=== PATIENT | male | born 1950 | race Caucasian/White ===

== ENCOUNTER 2024-10-06 17:24 | Inpatient (IN) ==
--- NOTE | 2024-10-06 17:46 | Emergency Department Note ---
Impression & Plan Stroke-like symptom, Acute alteration in mental status ED Provider Note NAME: FREDERICK BLAKE AGE: 74 SEX: M : 1950 ARRIVES VIA: Ambulance INFORMANT: Patient, EMS, the patient's family ED PROVIDER(S): Tobias Barrett DO CHIEF COMPLAINT: Strokelike symptoms HPI: The patient is a 74-year-old male who presented to the emergency department for an evaluation of strokelike symptoms. The patient was going to the bathroom. He was having episodes of loose stool. The patient went to come out of the bathroom and he was confused. Family members stated that he was asking repetitive questions. He was very confused. They did not notice any seizure- like activity. The patient did not fall or strike his head. The patient has no history of similar episodes in the past. The patient does take aspirin but no oral anticoagulants. 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 ROS: See above HPI for pertinent positives & negatives. A total of 10 systems reviewed and were otherwise negative. PAST MEDICAL HISTORY: See Below PAST SURGICAL HISTORY: See Below FAMILY HISTORY: See Below SOCIAL HISTORY: See Below HOME MEDICATIONS: See Below ALLERGIES: See Below VITALS: See Below PHYSICAL EXAMINATION: GENERAL: Patient is awake alert in no acute distress patient is resting comfortably and showing no signs of anxiety EYES: The conjunctivae are clear. The pupils are round and reactive. EARS, NOSE, MOUTH AND THROAT: The nose is without any evidence of any deformity. NECK: The neck is nontender and supple. RESPIRATORY: Normal respiratory effort is noted there is no evidence of wheezing rhonchi or rales CARDIOVASCULAR: Regular rate and rhythm noted there no murmurs rubs or gallops normal S1 normal S2. GASTROINTESTINAL: The abdomen is soft. Abdomen is nontender. MUSCULOSKELETAL/EXTREMITIES: There is no evidence of gross deformity full range of motion is noted in the hips and shoulders. SKIN: There is no obvious evidence of any rash. There are no petechiae, pallor or cyanosis noted. NEUROLOGIC: Patient is awake alert and oriented to person and place. He is not oriented to the year. He does recognize family members but has trouble with her names. Strength was symmetric. There is no drift in the upper extremities. There is no facial droop. Speech was pressured but clear. MEDICAL DECISION MAKING: The patient is a 74-year-old male who presented to the emergency department for an acute alteration of mental status. The patient was experiencing loose bowel movements. He was going to the bathroom. When he came out of the bathroom he was confused. 911 was called. The patient arrived at the emergency department and was made a stroke alert prior to arrival. The patient was evaluated in CAT scan. Plain CT showed no acute process. I discussed the case with the on-call telestroke neurologist at [facility]. After their evaluation they do feel the patient would be a candidate for TNK given the acute onset of symptoms. There were no obvious contraindications. There was no reported head trauma. The patient does not take oral anticoagulants. He does have a history of high cholesterol as well as hypertension and diabetes. His risk factors for stroke are present. Initial CAT scan showed no acute process as read by radiology. I discussed the risks and benefits of TNK with the daughter as well as the significant other. The telestroke neurologist also discussed the risks and benefits. Verbal consent was obtained. Triage Nursing notes reviewed. Prior medical records reviewed Vital Signs: reviewed and remarkable for elevated blood pressure. Differential diagnosis: Infection, dehydration, metabolic abnormality, hypo/hyperglycemia, electrolyte disturbance, anemia, hypoxia, cardiac sources, intracerebral event, toxicologic, neurologic, as well as other pathologies. ER treatment provided: See below Diagnostics interpreted by me: ECG: EKG was obtained in the emergency department. My interpretation is normal sinus rhythm at 78 bpm. There is no ectopy. There is no acute ST segment abnormalities noted. QTc was 412 ms. Cardiac Monitoring: An order was placed for continuous cardiac monitoring. The monitor shows a rate of 66 bpm with sinus rhythm. Laboratory studies: As stated above and show below. Imaging studies: See below. Radiographic imaging was reviewed by myself Consultation(s): I discussed this case with Dr. Chery who is on-call for telestroke services at [facility]. I discussed this case with Dr. Cronin who is on-call for the [facility]. ED COURSE: Procedures: none Critical Care: I have personally spent greater than 45 minutes of critical care time in the direct management of this patient. This includes bedside care, interpretation of diagnostic studies, and testing, discussion with consultants, patient, and family members, and other required patient management activities. This 45 minutes is in excess of all separately billable procedures. Thrombolytics MDM Did the patient receive IV thrombolytics?: Yes Was there any delay in administration?: Yes Reason(s) for Delay: The patient's daughter required multiple explanations for the indication for TNK however she ultimately did agree to TNK. The patient's presentation was not classic for ischemic stroke and there was much discussion about the patient's other differential diagnoses prior to deciding that TNK was ultimately indicated. Past Med/Surg History Problem List (Updated 10/06/24 @ 18:35 by Tobias Barrett DO) Acute alteration in mental status (Acute) Stroke-like symptom (Acute) Medical History (Updated 10/06/24 @ 18:35 by Tobias Barrett DO) Hypertension Diabetes Social History Smoking Status: Former smoker Preferred Language: Taj[place] Feels Safe at Home: Yes Home Meds Home Medications Medication Instructions Recorded Confirmed aspirin 1 tab PO DIRECTED 10/06/24 10/06/24 atorvastatin 40 mg tablet 40 mg PO DAILY 10/06/24 10/06/24 lisinopril 20 mg tablet 20 mg PO DAILY 10/06/24 10/06/24 metformin 500 mg tablet,extended 1,000 mg PO BID 10/06/24 10/06/24 release 24 hr Results & Data (ED) Vital Signs Vital Signs - 24 hr 10/06/24 17:36 10/06/24 17:36 10/06/24 17:36 Temperature 36.8 C Temperature Source Oral Pulse Rate 81 81 Pulse Rate [Finger] Pulse Rate from SpO2 Sensor 81 Pulse Rhythm Regular Pulse Rhythm [Finger] Pulse Strength Normal Pulse Strength [Finger] Respiratory Rate 18 19 Respiratory Effort / Characteristics Non-Labored Respiratory Depth Normal Respiratory Pattern Regular Blood Pressure 167/88 H 167/88 H Blood Pressure [Left Arm] Blood Pressure Mean 114 131 Blood Pressure Mean [Left Arm] Blood Pressure Position Lying Blood Pressure Position [Left Arm] Pulse Oximetry 96 97 Oxygen Delivery Method Room Air Sepsis Recent Fever Within 48 Hours No Sepsis New/Unexplained Change in Mental Status Yes Sepsis Action Taken by Nursing No Action Required 10/06/24 17:37 10/06/24 17:39 10/06/24 17:45 Temperature Temperature Source Pulse Rate 86 82 Pulse Rate [Finger] Pulse Rate from SpO2 Sensor 81 Pulse Rhythm Pulse Rhythm [Finger] Pulse Strength Pulse Strength [Finger] Respiratory Rate 17 Respiratory Effort / Characteristics Respiratory Depth Respiratory Pattern Blood Pressure Blood Pressure [Left Arm] Blood Pressure Mean Blood Pressure Mean [Left Arm] Blood Pressure Position Blood Pressure Position [Left Arm] Pulse Oximetry 95 100 Oxygen Delivery Method Room Air Sepsis Recent Fever Within 48 Hours Sepsis New/Unexplained Change in Mental Status Sepsis Action Taken by Nursing 10/06/24 17:48 10/06/24 18:00 10/06/24 18:10 Temperature Temperature Source Pulse Rate Pulse Rate [Finger] 70 Pulse Rate from SpO2 Sensor Pulse Rhythm Pulse Rhythm [Finger] Regular Pulse Strength Pulse Strength [Finger] Normal Respiratory Rate 18 Respiratory Effort / Characteristics Non-Labored Respiratory Depth Normal Respiratory Pattern Regular Blood Pressure 156/88 H 170/82 H Blood Pressure [Left Arm] 152/75 H Blood Pressure Mean 118 103 Blood Pressure Mean [Left Arm] 100 Blood Pressure Position Blood Pressure Position [Left Arm] Lying Pulse Oximetry 97 Oxygen Delivery Method Room Air Sepsis Recent Fever Within 48 Hours Sepsis New/Unexplained Change in Mental Status Sepsis Action Taken by Nursing 10/06/24 18:15 Temperature Temperature Source Pulse Rate Pulse Rate [Finger] Pulse Rate from SpO2 Sensor Pulse Rhythm Pulse Rhythm [Finger] Pulse Strength Pulse Strength [Finger] Respiratory Rate Respiratory Effort / Characteristics Respiratory Depth Respiratory Pattern Blood Pressure 156/81 H Blood Pressure [Left Arm] Blood Pressure Mean 111 Blood Pressure Mean [Left Arm] Blood Pressure Position Blood Pressure Position [Left Arm] Pulse Oximetry Oxygen Delivery Method Sepsis Recent Fever Within 48 Hours Sepsis New/Unexplained Change in Mental Status Sepsis Action Taken by Assisted Medications Current Medication List: was personally reviewed by me Laboratory Data Attestation: I reviewed the patient's lab results. 10/06/24 17:37 10/06/24 17:37 Lab Results 10/06/24 10/06/24 Range/Units 17:37 17:41 WBC 6.48 (4.8-10.8) K/ul RBC 4.27 L (4.70-6.10) M/uL Hgb 12.9 L (14.0-18.0) g/dl POC Hgb 12.6 L (14.0-18.0) g/dl Hct 38.4 L (42.0-52.0) % POC Hct 37 L (42-52) % MCV 89.9 (80.0-100.0) fL MCH 30.2 (25.0-34.0) pg MCHC 33.6 (32.0-36.0) g/dL RDW Std Deviation 41.3 (36.4-46.3) fL RDW Coeff of Gisela 12.5 (11.5-14.5) % Plt Count 171 (130-400) K/uL MPV 9.7 (9.4-12.4) fL Immature Gran % (Auto) 0.3 % Neut % (Auto) 49.8 % Lymph % (Auto) 37.7 % [place] % (Auto) 8.8 % Eos % (Auto) 2.6 % Baso % (Auto) 0.8 % Neut # (Auto) 3.23 (1.40-6.50) K/uL Lymph # (Auto) 2.44 (1.20-3.40) K/uL [place] # (Auto) 0.57 (0.11-0.59) K/uL Eos # (Auto) 0.17 (0.00-0.50) K/uL Baso # (Auto) 0.05 (0.00-0.20) K/uL Immature Gran # (Auto) 0.02 (0.01-0.20) K/uL PT 11.0 (9.0-12.0) Seconds INR 1.0 (0.9-1.1) APTT 26 (21-31) Seconds PTT Ratio 1.0 POC Sodium 139 (135-144) mmol/L Sodium 136 (136-145) mmol/L POC Potassium 4.1 (3.3-5.0) mmol/L Potassium 4.1 (3.5-5.1) mmol/L POC Chloride 102 (101-112) mmol/L Chloride 104 (98-107) mmol/L Carbon Dioxide 26 (21-32) mmol/L POC Total CO2 18 L (24-31) mmol/L Anion Gap 6 (3-11) POC Anion Gap 24.0 (16-25) mmol/L POC BUN 19 H (7-18) mg/dl BUN 19 (6-23) mg/dl Creatinine 0.82 (0.6-1.4) mg/dl POC Creatinine 0.9 (0.6-1.3) mg/dl Est Cr Clr Drug Dosing 102.6 ml/min eGFR 92.18 BUN/Creatinine Ratio 23.2 H (10-20) Glucose 163 H (70-99(Fasting)) mg/dl POC Glucose (other) 153 H (70-99) mg/dl Calcium 8.7 (8.6-10.3) mg/dl POC Ioniz Calcium Shawn 1.13 (1.12-1.32) mmol/l Magnesium 1.7 (1.7-2.4) mg/dl Total Bilirubin 0.4 (0.2-1.0) mg/dl AST 17 (13-39) U/L ALT 16 (7-52) U/L Alkaline Phosphatase 54 (34-104) U/L Troponin I High Sens 4.7 (0-20) pg/ml Total Protein 6.7 (6.0-8.3) gm/dl Albumin 3.7 (3.4-5.0) gm/dl Globulin 3.0 (2.5-4.0) gm/dl Albumin/Globulin Ratio 1.2 (0.9-2) Administered Medications Magnesium Sulfate/Dextrose (Magnesium Sulfate / D5w) 1 gm in 100 mls @ 100 mls/hr IV Q1H BARBARA Stop: 10/06/24 20:23 Last Admin: 10/06/24 18:30 Dose: 100 mls/hr Documented By: KIERSTEN Discontinued Medications Tenecteplase 25 mg/ Syringe 5 mls @ 60 mls/min IV NOW ONE; Protocol Stop: 10/06/24 18:24 Last Admin: 10/06/24 18:25 Dose: 60 mls/min Documented By: KIERSTEN Co-signed By: NEHA Ioversol (Optiray 320 125ml) 115 ml IV ONCE ONE Stop: 10/06/24 17:26 Last Admin: 10/06/24 17:25 Dose: 115 ml Documented By: KENDRICK Sodium Chloride (Sodium Chloride 0.9% 10ml Flush) 20 ml IV NOW STA Stop: 10/06/24 18:14 Last Admin: 10/06/24 18:26 Dose: 20 ml Documented By: KIERSTEN Imaging Data Attestation: I personally reviewed and interpreted this imaging study as follows: My Impression: CT of the brain was obtained in the emergency department. My interpretation is no intracranial hemorrhage or mass effect, final report below. 1 view chest x-ray was obtained in the emergency department. My interpretation is no free air or definite infiltrate, final report pending. Radiologist's Impression: Head CT 10/06/24 17:22 EXAM: CT Head Without Intravenous Contrast INDICATION: Evaluate for stroke. Repetitive speech. TECHNIQUE: Axial computed tomography images of the head/brain without intravenous contrast. Sagittal and/or coronal reformats are provided. Sagittal and coronal reformatted images were created and reviewed. This CT exam was performed using one or more of the following dose reduction techniques: automated exposure control, adjustment of the mA and/or kV according to patient size, and/or use of iterative reconstruction technique. COMPARISON: No relevant prior studies available. FINDINGS: Limitations: None. Brain and extra-axial spaces: There is age appropriate cortical atrophy and chronic ischemic periventricular white matter hypodensity. No acute infarct, hemorrhage or mass noted. Bones/joints: No acute changes. Soft tissues: No significant abnormality noted. Vasculature: No acute abnormality noted. Sinuses: No layering fluid in the visualized portions of the paranasal sinuses. Mastoid air cells: No mastoid effusion. Orbits: No significant abnormality noted. IMPRESSION: Cerebral atrophy. No acute changes. ACT 112: N/A Electronically signed by Lizeth Franz 10-06-2024 5:44 PM Head CTA 10/06/24 17:22 EXAM: CT Angiography Head and Neck With Intravenous Contrast INDICATION: Evaluate for stroke. Repetitive speech. TECHNIQUE: [place] [facility] [place]/head and neck CT angiography protocol performed with intravenous contrast. Sagittal and coronal reformatted images were created and reviewed. This CT exam was performed using one or more of the following dose reduction techniques: automated exposure control, adjustment of the mA and/or kV according to patient size, and/or use of iterative reconstruction technique. MIP reconstructed images were created and reviewed. CONTRAST: 115ml of Optiray 320 was administered intravenously. COMPARISON: None. FINDINGS: HEAD: Right anterior cerebral artery: No abnormality noted. No occlusion or significant stenosis. Anterior communicating artery is present. No aneurysm. Right middle cerebral artery: No abnormality noted. No occlusion or significant stenosis. No aneurysm. Right posterior cerebral artery: No abnormality noted. No occlusion or significant stenosis. No aneurysm. Right intracranial internal carotid artery: Mild calcific plaque noted. No significant stenosis. No dissection or occlusion. Right intracranial vertebral artery: No abnormality noted. No significant stenosis. No dissection or occlusion. Left anterior cerebral artery: No abnormality noted. No occlusion or significant stenosis. No aneurysm. Left middle cerebral artery: No abnormality noted. No occlusion or significant stenosis. No aneurysm. Left posterior cerebral artery: No abnormality noted. No occlusion or significant stenosis. No aneurysm. Left intracranial internal carotid artery: Mild calcific plaque noted. No significant stenosis. No dissection or occlusion. Left intracranial vertebral artery: No abnormality noted. No significant stenosis. No dissection or occlusion. Basilar artery: No abnormality noted. No occlusion or significant stenosis. No aneurysm. Other vasculature: Patent dural venous sinuses. No vascular malformation. NECK: Right common carotid artery: No abnormality noted. No significant stenosis. No dissection or occlusion. Right extracranial internal carotid artery: Minimal calcific plaque at the bulb. No significant stenosis. No dissection or occlusion. Right external carotid artery: No abnormality noted. No occlusion. Right extracranial vertebral artery: No abnormality noted. No significant stenosis. No dissection or occlusion. Left common carotid artery: No abnormality noted. No significant stenosis. No dissection or occlusion. Left extracranial internal carotid artery: Normal calcific plaque at the bulb. No significant stenosis. No dissection or occlusion. Left external carotid artery: No abnormality noted. No occlusion. Left extracranial vertebral artery: No abnormality noted. No significant stenosis. No dissection or occlusion. Brachiocephalic and subclavian arteries: There is mild calcific plaque at the origins of both subclavian arteries. No occlusion, dissection or aneurysm. Lung apices: No significant abnormality noted. HEAD and NECK: Bones/joints: No significant abnormality. Moderate degenerative changes at all levels. There is prominent midline osteophyte disc complex with canal stenosis at C5-C6 and C6-C7. Soft tissues: No abnormality noted. CAROTID STENOSIS REFERENCE USING NASCET CRITERIA: % ICA stenosis = (1 - narrowest ICA diameter/diameter of distal cervical ICA) x 100. Mild - <50% stenosis. Moderate - 50-69% stenosis. Severe - 70-94% stenosis. Near occlusion - 95-99% stenosis. Occluded - 100% stenosis. IMPRESSION: No significant angiographic abnormality in the head or neck. ACT 112: N/A Electronically signed by Lizeth Franz 10-06-2024 5:48 PM Neck CTA 10/06/24 17:22 EXAM: CT Angiography Head and Neck With Intravenous Contrast INDICATION: Evaluate for stroke. Repetitive speech. TECHNIQUE: [place] [facility] [place]/head and neck CT angiography protocol performed with intravenous contrast. Sagittal and coronal reformatted images were created and reviewed. This CT exam was performed using one or more of the following dose reduction techniques: automated exposure control, adjustment of the mA and/or kV according to patient size, and/or use of iterative reconstruction technique. MIP reconstructed images were created and reviewed. CONTRAST: 115ml of Optiray 320 was administered intravenously. COMPARISON: None. FINDINGS: HEAD: Right anterior cerebral artery: No abnormality noted. No occlusion or significant stenosis. Anterior communicating artery is present. No aneurysm. Right middle cerebral artery: No abnormality noted. No occlusion or significant stenosis. No aneurysm. Right posterior cerebral artery: No abnormality noted. No occlusion or significant stenosis. No aneurysm. Right intracranial internal carotid artery: Mild calcific plaque noted. No significant stenosis. No dissection or occlusion. Right intracranial vertebral artery: No abnormality noted. No significant stenosis. No dissection or occlusion. Left anterior cerebral artery: No abnormality noted. No occlusion or significant stenosis. No aneurysm. Left middle cerebral artery: No abnormality noted. No occlusion or significant stenosis. No aneurysm. Left posterior cerebral artery: No abnormality noted. No occlusion or significant stenosis. No aneurysm. Left intracranial internal carotid artery: Mild calcific plaque noted. No significant stenosis. No dissection or occlusion. Left intracranial vertebral artery: No abnormality noted. No significant stenosis. No dissection or occlusion. Basilar artery: No abnormality noted. No occlusion or significant stenosis. No aneurysm. Other vasculature: Patent dural venous sinuses. No vascular malformation. NECK: Right common carotid artery: No abnormality noted. No significant stenosis. No dissection or occlusion. Right extracranial internal carotid artery: Minimal calcific plaque at the bulb. No significant stenosis. No dissection or occlusion. Right external carotid artery: No abnormality noted. No occlusion. Right extracranial vertebral artery: No abnormality noted. No significant stenosis. No dissection or occlusion. Left common carotid artery: No abnormality noted. No significant stenosis. No dissection or occlusion. Left extracranial internal carotid artery: Normal calcific plaque at the bulb. No significant stenosis. No dissection or occlusion. Left external carotid artery: No abnormality noted. No occlusion. Left extracranial vertebral artery: No abnormality noted. No significant stenosis. No dissection or occlusion. Brachiocephalic and subclavian arteries: There is mild calcific plaque at the origins of both subclavian arteries. No occlusion, dissection or aneurysm. Lung apices: No significant abnormality noted. HEAD and NECK: Bones/joints: No significant abnormality. Moderate degenerative changes at all levels. There is prominent midline osteophyte disc complex with canal stenosis at C5-C6 and C6-C7. Soft tissues: No abnormality noted. CAROTID STENOSIS REFERENCE USING NASCET CRITERIA: % ICA stenosis = (1 - narrowest ICA diameter/diameter of distal cervical ICA) x 100. Mild - <50% stenosis. Moderate - 50-69% stenosis. Severe - 70-94% stenosis. Near occlusion - 95-99% stenosis. Occluded - 100% stenosis. IMPRESSION: No significant angiographic abnormality in the head or neck. ACT 112: N/A Electronically signed by Lizeth Franz 10-06-2024 5:48 PM Discharge Plan Visit Data Chief Complaint: Stroke Alert Stated Complaint: STROKE ALERT ED Provider: Tobias Barrett Discharge Problem: Stroke-like symptom, Acute alteration in mental status Patient Disposition: Being Evaluated by Hospitalist Condition: Fair Forms Stand Alone Forms: [employer] Prescriptions Prescriptions: No Action atorvastatin 40 mg tablet 40 mg PO DAILY lisinopril 20 mg tablet 20 mg PO DAILY metformin 500 mg tablet extended release 24 hr 1,000 mg PO BID aspirin 1 tab PO DIRECTED Rx Instructions: otc unable to verify Referrals Referrals: PCP,NO [Physician] -
--- NOTE | 2024-10-06 17:49 | CT Scan Report ---
EXAM: CT Angiography Head and Neck With Intravenous Contrast INDICATION: Evaluate for stroke. Repetitive speech. TECHNIQUE: [place] [facility]/head and neck CT angiography protocol performed with intravenous contrast. Sagittal and coronal reformatted images were created and reviewed. This CT exam was performed using one or more of the following dose reduction techniques: automated exposure control, adjustment of the mA and/or kV according to patient size, and/or use of iterative reconstruction technique. MIP reconstructed images were created and reviewed. CONTRAST: 115ml of Optiray 320 was administered intravenously. COMPARISON: None. FINDINGS: HEAD: Right anterior cerebral artery: No abnormality noted. No occlusion or significant stenosis. Anterior communicating artery is present. No aneurysm. Right middle cerebral artery: No abnormality noted. No occlusion or significant stenosis. No aneurysm. Right posterior cerebral artery: No abnormality noted. No occlusion or significant stenosis. No aneurysm. Right intracranial internal carotid artery: Mild calcific plaque noted. No significant stenosis. No dissection or occlusion. Right intracranial vertebral artery: No abnormality noted. No significant stenosis. No dissection or occlusion. Left anterior cerebral artery: No abnormality noted. No occlusion or significant stenosis. No aneurysm. Left middle cerebral artery: No abnormality noted. No occlusion or significant stenosis. No aneurysm. Left posterior cerebral artery: No abnormality noted. No occlusion or significant stenosis. No aneurysm. Left intracranial internal carotid artery: Mild calcific plaque noted. No significant stenosis. No dissection or occlusion. Left intracranial vertebral artery: No abnormality noted. No significant stenosis. No dissection or occlusion. Basilar artery: No abnormality noted. No occlusion or significant stenosis. No aneurysm. Other vasculature: Patent dural venous sinuses. No vascular malformation. NECK: Right common carotid artery: No abnormality noted. No significant stenosis. No dissection or occlusion. Right extracranial internal carotid artery: Minimal calcific plaque at the bulb. No significant stenosis. No dissection or occlusion. Right external carotid artery: No abnormality noted. No occlusion. Right extracranial vertebral artery: No abnormality noted. No significant stenosis. No dissection or occlusion. Left common carotid artery: No abnormality noted. No significant stenosis. No dissection or occlusion. Left extracranial internal carotid artery: Normal calcific plaque at the bulb. No significant stenosis. No dissection or occlusion. Left external carotid artery: No abnormality noted. No occlusion. Left extracranial vertebral artery: No abnormality noted. No significant stenosis. No dissection or occlusion. Brachiocephalic and subclavian arteries: There is mild calcific plaque at the origins of both subclavian arteries. No occlusion, dissection or aneurysm. Lung apices: No significant abnormality noted. HEAD and NECK: Bones/joints: No significant abnormality. Moderate degenerative changes at all levels. There is prominent midline osteophyte disc complex with canal stenosis at C5-C6 and C6-C7. Soft tissues: No abnormality noted. CAROTID STENOSIS REFERENCE USING NASCET CRITERIA: % ICA stenosis = (1 - narrowest ICA diameter/diameter of distal cervical ICA) x 100. Mild - <50% stenosis. Moderate - 50-69% stenosis. Severe - 70-94% stenosis. Near occlusion - 95-99% stenosis. Occluded - 100% stenosis. IMPRESSION: No significant angiographic abnormality in the head or neck. ACT 112: N/A Electronically signed by Lizeth Franz 10-06-2024 5:48 PM
[2024-10-06 17:54] LABS: Basophils # (auto) 0.05 K/uL (0.00-0.20); Basophils % (auto) 0.8 %; Eosinophils # (auto) 0.17 K/uL (0.00-0.50); Eosinophils % (auto) 2.6 %; Hematocrit (blood only) 38.4 % (42.0-52.0); Hemoglobin 12.9 g/dl (14.0-18.0); Immature Granulocytes # (auto) 0.02 K/uL (0.01-0.20); Immature Granulocytes % (auto) 0.3 %; Lymphocytes # (auto) 2.44 K/uL (1.20-3.40); Lymphocytes % (auto) 37.7 %; Mean Corpuscular Hemoglobin 30.2 pg (25.0-34.0); Mean Corpuscular Hgb Conc 33.6 g/dL (32.0-36.0); Mean Corpuscular Volume 89.9 fL (80.0-100.0); Mean Platelet Volume 9.7 fL (9.4-12.4); Monocytes # (auto) 0.57 K/uL (0.11-0.59); Monocytes % (auto) 8.8 %; Neutrophils # (auto) 3.23 K/uL (1.40-6.50); Neutrophils % (auto) 49.8 %; Platelet Count 171 K/uL (130-400); RDW Coefficient of Variation 12.5 % (11.5-14.5); RDW Standard Deviation 41.3 fL (36.4-46.3); Red Blood Count 4.27 M/uL (4.70-6.10); White Blood Count 6.48 K/ul (4.8-10.8)
[2024-10-06 18:01] LABS: iSTAT Creatinine 0.9 mg/dl (0.6-1.3); iSTAT Hemoglobin 12.6 g/dl (14.0-18.0); iSTAT Ionized Calcium 1.13 mmol/l (1.12-1.32); iSTAT Potassium 4.1 mmol/L (3.3-5.0)
[2024-10-06 18:14] LABS: Albumin Globulin Ratio 1.2 (0.9-2); Albumin Level 3.7 gm/dl (3.4-5.0); BUN Creatinine Ratio 23.2 (10-20); Bilirubin,Total 0.4 mg/dl (0.2-1.0); Calcium 8.7 mg/dl (8.6-10.3); Creatinine Clr Calc Pharmacy 102.6 ml/min; Magnesium 1.7 mg/dl (1.7-2.4); Potassium 4.1 mmol/L (3.5-5.1); Total Protein 6.7 gm/dl (6.0-8.3)
[2024-10-06 18:20] LABS: Troponin I High Sensitivity 4.7 pg/ml (0-20)
[2024-10-06 18:30] LABS: Partial Thromboplastin Time 26 Seconds (21-31)
--- NOTE | 2024-10-06 18:34 | History & Physical Report ---
Date of Service October 06, 2024 Assessment & Plan (1) Stroke-like symptom: (2) Anterograde amnesia: (3) Hypertension: (4) Diabetes: Plan Mr. Francis is a 74 year old gentleman with past medical history remarkable for HTN, DMTII, HLD admitted for stroke r/o, s/p TNK at 1825 on 10/06/2024. Patient to be admitted to ICU for post TNK monitoring. Patient's neurologic deficit marked by prominent anterograde amnesia. Labs noncontributory thus far, no reported etoh history. TSH, folate, b12 pending. #Anterograde amnesia, stroke v TGA? #Stroke like symptoms CT head, CTA without acute stroke, dissection, vascular stenosis labs without acute abnormality Ordered TSH, B12, Folate Starting high dose thiamine UA ordered MRI ordered ECHO ordered CT in 24 hours s/p tnk ICU on consult PT/OT as able SCDS for now iso tnk dysphagia screen pending, advance diet as tolerated Neurology consult for am lipid panel and A1C in am continue home statin, hold asa iso tnk #HTN on lisinopril continue #HLD continue statin #DMII on metformin at home A1C in am hyperglycemic protocol per ICU Unassigned patient DVT SCDs Full code Admit ICU Admission and Anticipated Discharge Date Admission Date: Time spent evaluating patient, direct bedside care, chart review, placing orders, interpretation of diagnostic studies, discussion with consultants, patient, and family members, as well as other required patient management activities is 75 minutes. History of Present Illness Chief Complaint: Amnesia Primary Care Provider: Taye Alexander DO Mr. Francis is a 74 year old gentleman with past medical history remarkable for HTN, DMTII, HLD presented to [facility] ED due to amnesia. Patient was a code stroke prior to arrival. History mostly provided by and daughter at bedside. Patient was last well known around 1600 today. He eating dinner with family when he left to go to the bathroom. Upon returning, the states the patient exclaimed "whose plate is this?" The states from there on out he kept repeating the same things and was unable to recall any of the events of the day or the day prior. There was no presyncopal episode, no chest pain, no clear acute concern preceeding this event. It is reported perhaps an episode of diarrhea, however, there were no ongoing concerns of this previously. Patient continues to demonstrate continue anterograde amnesia--unable to remember why he is in the hospital, recall physicians who have examined him multiple times may be. He denies any headache, weakness, localizing symptoms. He is speaking clearly and moving all limbs normal. states patient does not drink alcohol, smoke tobacco, nor any other illicit substances. Patient is an avid bia, no ambulatory dysfunction at baseline. No reported seizure like activity, flaccid movements, weakness of extremities noted. Decision was made to administer TNK at 1825 on 10/06/2024 In the ED, vitals were notable for BP of 140s-170s HR of 60s and O2 sat of mid- high 90s on room air Imaging revealed CTA without any significant stenosis or dissection, CT head revealed cerebral atrophy but no infarct ED interventions: TNK, magnesium, thiamine Consultants: Telestroke Patient to be admitted to ICU for further evaluation and management of post TNK administration, stroke r/o, prominent anterograde amnesia Allergies Allergy/AdvReac Type Severity Reaction Status Date / Time No Known Allergies Allergy Unverified 10/06/24 19:22 Home Medications Medication Instructions Recorded Confirmed Type aspirin 1 tab PO DIRECTED 10/06/24 10/06/24 History atorvastatin 40 mg tablet 40 mg PO DAILY 10/06/24 10/06/24 History lisinopril 20 mg tablet 20 mg PO DAILY 10/06/24 10/06/24 History metformin 500 mg tablet,extended 1,000 mg PO BID 10/06/24 10/06/24 History release 24 hr Past Med/Surg History Problem List (Updated 10/06/24 @ 19:31 by Kindra Cronin MD) Anterograde amnesia Acute alteration in mental status (Acute) Stroke-like symptom (Acute) Medical History (Updated 10/06/24 @ 19:31 by Kindra Cronin MD) Hypertension Diabetes Social History Smoking Status: Former smoker Preferred Language: Thai Feels Safe at Home: Yes Review of Systems Review of Systems: Constitutional: (-) fever/chills, (-) recent loss of weight, (-) appetite changes, (-) night sweats. Head: (-) headache, (-) dizziness. Eye: (-) blurring of vision, (-) double vision, (-) redness. Ear: (-) hearing loss, (-) discharge, (-) vertigo Nose: (-) discharge, (-) bleeding, (-) congestion, (-) post nasal drip. Throat: (-) sore throat, (-) hoarseness of voice, (-) odynophagia. Cardiovascular: (-) chest pain, (-) palpitations, (-) syncope, (-) orthopnea, (- ) PND, (-) leg swelling. Respiratory: (-) shortness of breath, (-) cough, (-) wheezing, (-) hemoptysis. Neuro: (-) weakness in extremities, (-) numbness, (-) tingling, (-) tremor. Gastrointestinal: (-) belly pain, (-) belly distension, (-) nausea, (-) vomiting, (-) diarrhea (?, does not recall), (-) constipation Genitourinary: (-) hematuria, (-) dysuria, (-) polyuria, (-) hesitancy, (-) frequency, (-) urinary incontinence. Musculoskeletal: (-) myalgia, (-) arthralgia. Skin: (-) rashes. Endocrine: (-) heat/cold intolerance. Psychiatry: (-) depression, (-) hallucination. Physical Exam Physical Exam: GENERAL APPEARANCE: AxOx1, generally well-appearing, but recollection lasting approximately 1-2 minutes HEENT: NC, AT. MMM. EOMI, clear conjunctiva, oropharynx clear. NECK: Supple without lymphadenopathy. No stiffness or restricted ROM. HEART: Normal rate and regular rhythm, normal S1/S1, no m/r/g LUNGS: CTAB, moving air well. No crackles or wheezes are heard. ABDOMEN: Soft, nontender, nondistended with good bowel sounds heard. BACK: No CVAT, no obvious deformity. EXTREMITIES: Without cyanosis, clubbing or edema. NEUROLOGICAL: Grossly nonfocal. Alert and oriented, moving all 4 extremities. CNII-XII intact, strength 5/5 in all extremities Skin: Warm and dry without any rash. Results & Data Results & Data Vital Signs (Past 12 Hours) Vital Signs Temp Pulse Pulse Resp BP BP Pulse Ox 10/06/24 18:15 156/81 H 10/06/24 18:10 170/82 H 10/06/24 18:00 156/88 H 10/06/24 17:48 70 18 152/75 H 97 10/06/24 17:45 100 10/06/24 17:39 82 17 95 10/06/24 17:37 86 10/06/24 17:36 81 19 97 10/06/24 17:36 167/88 H 10/06/24 17:36 36.8 C 81 18 167/88 H 96 O2 Del Method 10/06/24 18:15 10/06/24 18:10 10/06/24 18:00 10/06/24 17:48 Room Air 10/06/24 17:45 Room Air 10/06/24 17:39 10/06/24 17:37 10/06/24 17:36 10/06/24 17:36 10/06/24 17:36 Room Air Laboratory Results Short CBC 10/06/24 Range/Units 17:37 WBC 6.48 (4.8-10.8) K/ul Hgb 12.9 L (14.0-18.0) g/dl Hct 38.4 L (42.0-52.0) % Plt Count 171 (130-400) K/uL BMP 10/06/24 17:37 Sodium 136 Potassium 4.1 Chloride 104 Carbon Dioxide 26 BUN 19 Creatinine 0.82 Glucose 163 H Calcium 8.7 Liver Function 10/06/24 Range/Units 17:37 Total Bilirubin 0.4 (0.2-1.0) mg/dl AST 17 (13-39) U/L ALT 16 (7-52) U/L Alkaline Phosphatase 54 (34-104) U/L Albumin 3.7 (3.4-5.0) gm/dl Diagnostic Findings Chest X-Ray 10/06/24 17:22 EXAM: Radiograph of the Chest 1 View INDICATION: Stroke TECHNIQUE: Frontal view of the chest. COMPARISON: No relevant prior studies available. FINDINGS: Lungs and pleural spaces: No consolidation or pulmonary edema. No pleural effusion or pneumothorax. Heart: Shape and configuration within normal limits allowing for technique. Mediastinum: Normal contour. Bones/joints: No fracture, erosion or dislocation. Soft tissues: No abnormality noted. No radiopaque foreign body noted. Vasculature: Mild ectatic aorta. Upper abdomen: No abnormality noted. IMPRESSION: No acute cardiopulmonary disease. ACT 112: N/A Electronically signed by Lizeth Franz 10-06-2024 6:[address] 10/06/24 17:22 EXAM: CT Head Without Intravenous Contrast INDICATION: Evaluate for stroke. Repetitive speech. TECHNIQUE: Axial computed tomography images of the head/brain without intravenous contrast. Sagittal and/or coronal reformats are provided. Sagittal and coronal reformatted images were created and reviewed. This CT exam was performed using one or more of the following dose reduction techniques: automated exposure control, adjustment of the mA and/or kV according to patient size, and/or use of iterative reconstruction technique. COMPARISON: No relevant prior studies available. FINDINGS: Limitations: None. Brain and extra-axial spaces: There is age appropriate cortical atrophy and chronic ischemic periventricular white matter hypodensity. No acute infarct, hemorrhage or mass noted. Bones/joints: No acute changes. Soft tissues: No significant abnormality noted. Vasculature: No acute abnormality noted. Sinuses: No layering fluid in the visualized portions of the paranasal sinuses. Mastoid air cells: No mastoid effusion. Orbits: No significant abnormality noted. IMPRESSION: Cerebral atrophy. No acute changes. ACT 112: N/A Electronically signed by Lizeth Franz 10-06-2024 5:44 PM Head CTA 10/06/24 17:22 EXAM: CT Angiography Head and Neck With Intravenous Contrast INDICATION: Evaluate for stroke. Repetitive speech. TECHNIQUE: [place] [facility]/head and neck CT angiography protocol performed with intravenous contrast. Sagittal and coronal reformatted images were created and reviewed. This CT exam was performed using one or more of the following dose reduction techniques: automated exposure control, adjustment of the mA and/or kV according to patient size, and/or use of iterative reconstruction technique. MIP reconstructed images were created and reviewed. CONTRAST: 115ml of Optiray 320 was administered intravenously. COMPARISON: None. FINDINGS: HEAD: Right anterior cerebral artery: No abnormality noted. No occlusion or significant stenosis. Anterior communicating artery is present. No aneurysm. Right middle cerebral artery: No abnormality noted. No occlusion or significant stenosis. No aneurysm. Right posterior cerebral artery: No abnormality noted. No occlusion or significant stenosis. No aneurysm. Right intracranial internal carotid artery: Mild calcific plaque noted. No significant stenosis. No dissection or occlusion. Right intracranial vertebral artery: No abnormality noted. No significant stenosis. No dissection or occlusion. Left anterior cerebral artery: No abnormality noted. No occlusion or significant stenosis. No aneurysm. Left middle cerebral artery: No abnormality noted. No occlusion or significant stenosis. No aneurysm. Left posterior cerebral artery: No abnormality noted. No occlusion or significant stenosis. No aneurysm. Left intracranial internal carotid artery: Mild calcific plaque noted. No significant stenosis. No dissection or occlusion. Left intracranial vertebral artery: No abnormality noted. No significant stenosis. No dissection or occlusion. Basilar artery: No abnormality noted. No occlusion or significant stenosis. No aneurysm. Other vasculature: Patent dural venous sinuses. No vascular malformation. NECK: Right common carotid artery: No abnormality noted. No significant stenosis. No dissection or occlusion. Right extracranial internal carotid artery: Minimal calcific plaque at the bulb. No significant stenosis. No dissection or occlusion. Right external carotid artery: No abnormality noted. No occlusion. Right extracranial vertebral artery: No abnormality noted. No significant stenosis. No dissection or occlusion. Left common carotid artery: No abnormality noted. No significant stenosis. No dissection or occlusion. Left extracranial internal carotid artery: Normal calcific plaque at the bulb. No significant stenosis. No dissection or occlusion. Left external carotid artery: No abnormality noted. No occlusion. Left extracranial vertebral artery: No abnormality noted. No significant stenosis. No dissection or occlusion. Brachiocephalic and subclavian arteries: There is mild calcific plaque at the origins of both subclavian arteries. No occlusion, dissection or aneurysm. Lung apices: No significant abnormality noted. HEAD and NECK: Bones/joints: No significant abnormality. Moderate degenerative changes at all levels. There is prominent midline osteophyte disc complex with canal stenosis at C5-C6 and C6-C7. Soft tissues: No abnormality noted. CAROTID STENOSIS REFERENCE USING NASCET CRITERIA: % ICA stenosis = (1 - narrowest ICA diameter/diameter of distal cervical ICA) x 100. Mild - <50% stenosis. Moderate - 50-69% stenosis. Severe - 70-94% stenosis. Near occlusion - 95-99% stenosis. Occluded - 100% stenosis. IMPRESSION: No significant angiographic abnormality in the head or neck. ACT 112: N/A Electronically signed by Lizeth Franz 10-06-2024 5:48 PM Neck CTA 10/06/24 17:22 EXAM: CT Angiography Head and Neck With Intravenous Contrast INDICATION: Evaluate for stroke. Repetitive speech. TECHNIQUE: [place] [facility]/head and neck CT angiography protocol performed with intravenous contrast. Sagittal and coronal reformatted images were created and reviewed. This CT exam was performed using one or more of the following dose reduction techniques: automated exposure control, adjustment of the mA and/or kV according to patient size, and/or use of iterative reconstruction technique. MIP reconstructed images were created and reviewed. CONTRAST: 115ml of Optiray 320 was administered intravenously. COMPARISON: None. FINDINGS: HEAD: Right anterior cerebral artery: No abnormality noted. No occlusion or significant stenosis. Anterior communicating artery is present. No aneurysm. Right middle cerebral artery: No abnormality noted. No occlusion or significant stenosis. No aneurysm. Right posterior cerebral artery: No abnormality noted. No occlusion or significant stenosis. No aneurysm. Right intracranial internal carotid artery: Mild calcific plaque noted. No significant stenosis. No dissection or occlusion. Right intracranial vertebral artery: No abnormality noted. No significant stenosis. No dissection or occlusion. Left anterior cerebral artery: No abnormality noted. No occlusion or significant stenosis. No aneurysm. Left middle cerebral artery: No abnormality noted. No occlusion or significant stenosis. No aneurysm. Left posterior cerebral artery: No abnormality noted. No occlusion or significant stenosis. No aneurysm. Left intracranial internal carotid artery: Mild calcific plaque noted. No significant stenosis. No dissection or occlusion. Left intracranial vertebral artery: No abnormality noted. No significant stenosis. No dissection or occlusion. Basilar artery: No abnormality noted. No occlusion or significant stenosis. No aneurysm. Other vasculature: Patent dural venous sinuses. No vascular malformation. NECK: Right common carotid artery: No abnormality noted. No significant stenosis. No dissection or occlusion. Right extracranial internal carotid artery: Minimal calcific plaque at the bulb. No significant stenosis. No dissection or occlusion. Right external carotid artery: No abnormality noted. No occlusion. Right extracranial vertebral artery: No abnormality noted. No significant stenosis. No dissection or occlusion. Left common carotid artery: No abnormality noted. No significant stenosis. No dissection or occlusion. Left extracranial internal carotid artery: Normal calcific plaque at the bulb. No significant stenosis. No dissection or occlusion. Left external carotid artery: No abnormality noted. No occlusion. Left extracranial vertebral artery: No abnormality noted. No significant stenosis. No dissection or occlusion. Brachiocephalic and subclavian arteries: There is mild calcific plaque at the origins of both subclavian arteries. No occlusion, dissection or aneurysm. Lung apices: No significant abnormality noted. HEAD and NECK: Bones/joints: No significant abnormality. Moderate degenerative changes at all levels. There is prominent midline osteophyte disc complex with canal stenosis at C5-C6 and C6-C7. Soft tissues: No abnormality noted. CAROTID STENOSIS REFERENCE USING NASCET CRITERIA: % ICA stenosis = (1 - narrowest ICA diameter/diameter of distal cervical ICA) x 100. Mild - <50% stenosis. Moderate - 50-69% stenosis. Severe - 70-94% stenosis. Near occlusion - 95-99% stenosis. Occluded - 100% stenosis. IMPRESSION: No significant angiographic abnormality in the head or neck. ACT 112: N/A Electronically signed by Lizeth Franz 10-06-2024 5:48 PM Medications Administered Home Medications Medication Instructions Recorded Confirmed Last Taken aspirin 1 tab PO DIRECTED 10/06/24 10/06/24 Unknown atorvastatin 40 mg tablet 40 mg PO DAILY 10/06/24 10/06/24 Unknown lisinopril 20 mg tablet 20 mg PO DAILY 10/06/24 10/06/24 Unknown metformin 500 mg tablet,extended 1,000 mg PO BID 10/06/24 10/06/24 Unknown release 24 hr Active Medications Generic Name Dose Route Start Last Admin Trade Name Freq PRN Reason Stop Dose Admin Magnesium Sulfate/Dextrose 1 gm in 100 mls @ 100 mls/hr 10/06/24 18:24 10/06/24 18:30 Magnesium Sulfate / D5w IV 10/06/24 20:23 100 mls/hr Q1H BARBARA Administration
--- NOTE | 2024-10-06 18:56 | XRay Report ---
EXAM: Radiograph of the Chest 1 View INDICATION: Stroke TECHNIQUE: Frontal view of the chest. COMPARISON: No relevant prior studies available. FINDINGS: Lungs and pleural spaces: No consolidation or pulmonary edema. No pleural effusion or pneumothorax. Heart: Shape and configuration within normal limits allowing for technique. Mediastinum: Normal contour. Bones/joints: No fracture, erosion or dislocation. Soft tissues: No abnormality noted. No radiopaque foreign body noted. Vasculature: Mild ectatic aorta. Upper abdomen: No abnormality noted. IMPRESSION: No acute cardiopulmonary disease. ACT 112: N/A Electronically signed by Lizeth Franz 10-06-2024 6:55 PM
[2024-10-06 19:31] LABS: Thyroid Stimulating Hormone 2.862 uIu/ml (0.300-4.500)
[2024-10-06 19:46] LABS: Appearance Urine Clear (Clear); Bilirubin Urine Negative (Negative); Blood Urine Negative (Negative); Color Urine Yellow; Glucose Urine UA Trace (Negative); Ketones Urine Negative (Negative); Leukocyte Esterase Urine Negative (Negative); Nitrite Urine Negative (Negative); Protein Urine Negative (Negative); Specific Gravity Urine 1.041 (1.000-1.030); Urobilinogen Urine Negative (Negative)
--- NOTE | 2024-10-06 19:46 | Critical Care Consultation ---
Date of Consultation October 06, 2024 Assessment & Plan (1) Stroke-like symptom: (2) Thrombolytic medication administered within last 5 days: (3) Amnesia: Plan Reason Critically Ill: 74 YOM presents with confusion/antegrade amnesia deemed thrombolytic candidate and received TNK. ICU for post thrombolytic monitoring and continue work up. Neuro - Stroke like symptoms, s/p thrombolytic administration, antegrade amnesia. CAM ICU: NEGATIVE - TNK administered at ~1824 - q1 h neuro exams- any change obtain stat non con head CT - Patient with current NIHSS- 0 - No antiplatelet medications until 24 hour post thrombolytic administration - DDX: Stroke vs. TGA vs. TIA vs complex migraine vs. seizure vs. other - Patient with event witnessed of acute onset with what appears as short term retrograde memory loss/amnesia, associated with brief episode staring at the wall and then clearing of sensorium - mostly retrograde short term amnesia but also appears to not being able to remember current information as well - Continue supportive care - Lipid panel in am - HGBA1c in am - ECHO in am with bubble - Will send tick panel in am as he is with history of outdoor activities frequently Cardiac - Hx Of HTN, HLD= no acute needs - BP goals allow permissive HTN <180/105- labetalol IV PRN - adjust statin if indicated on lipid panel in am Respiratory - No acute needs GI - No acute needs - advance diet as tolerated RENAL/LYTES - No acute needs - replete electrolytes per ICU protocol - No acute needs ENDO - DMII- no acute needs - ICU hyperglycemic protocol - hold metformin HEME -No acute needs - follow for signs of bleeding ID - No concern for infectious etiology at this time LINES/IV ACCESS - PIV x2 Continue use of these lines DVT PROPHYLAXIS - SCDS- hold antiplatelet medications 24 hour post thrombolytics DISPO: ICU 24 hours post thrombolytic administration I have personally spent 35 minutes of time in the direct management of this patient. This is a life/limb threatening event. This includes time spent evaluating patient, direct bedside care, chart review, placing orders, interpretation of diagnostic studies, discussion with consultants, patient, and family members, as well as other required patient management activities. This time is exclusive of all separately billable procedures, and separate from and in addition to any other critical care service time. Thank you for allowing us to participate in the care of this patient. Please refer to my attending physician's documentation for any further recommendations. History of Present Illness Reason for Consultation: stroke like symptoms s/p thrombolytic administration Requesting Physician: Kindra Cronin MD Attending Physician: Kindra Cronin MD History of Present Illness 74 YOM with medical history of: HTN, DMII, HLD. Patient arrived via EMS as stroke alert for acute onset of confusion that occurred around 1620. He is accompanied by his daughter and his girlfriend. Patient does not have any recollection of events from today, however appears to remember some events from yesterday. He reportedly awoken this morning was independent and normal, he drove from his girlfriends house and stopped had lunch at [employer], they made it to his daughters house. While at his daughter's house, he made shrimp for dinner and was eating dinner, when he then got up went to the bathroom and came out of the bathroom confused and said "something happened" and then reportedly started to ask where he was, whose dinner plate is this, and staring at the wall for a brief period of time. EMS was then called. Patient arrived to the ER and stroke protocol was initiated. He was given ASA, Thiamine, and Magnesium. He had routine labs performed, CT head, CTA of the head and neck obtained. Imaging was negative for any acute bleed, mass, ICAD/stenosis or aneurysms. CTA of neck also interpreted as negative. NIHSS 0-1 and was offered thrombolytic therapy which he did receive at 1823. Patient will be admitted to the ICU for continued monitoring post thrombolytic administration. MRI will be obtained. CODE: FULL Allergies Allergy/AdvReac Type Severity Reaction Status Date / Time No Known Allergies Allergy Unverified 10/06/24 19:22 Home Medications Medication Instructions Recorded Confirmed Type aspirin 1 tab PO DIRECTED 10/06/24 10/06/24 History atorvastatin 40 mg tablet 40 mg PO DAILY 10/06/24 10/06/24 History lisinopril 20 mg tablet 20 mg PO DAILY 10/06/24 10/06/24 History metformin 500 mg tablet,extended 1,000 mg PO BID 10/06/24 10/06/24 History release 24 hr Patient History Medical History (Updated 10/06/24 @ 20:21 by Danial S. Brezovic, [employer]) Hypertension Diabetes Social History Smoking Status: Former smoker Preferred Language: Luxembourgish Feels Safe at Home: Yes Review of Systems Review of Systems: REVIEW OF SYSTEMS: Constitutional: No fever, sweats or chills Eyes: No diplopia, no worsening or blurred vision ENT: normal hearing, no trouble swallowing Respiratory: No cough, sputum, dyspnea at rest or on exertion Cardiovascular: No chest pain, tightness or palpitations Abdomen: No pain, nausea, vomiting, diarrhea or constipation Musculoskeletal: No joint pain, calf pain, swelling Neurologic: (+) memory change, No weakness, numbness/tingling, or balance problems Psychiatric: No anxiety or depression Skin: No rash or itch Physical Exam Physical Exam: PHYSICAL EXAM: General: awake, alert, confused on events from the day Head: Normocephalic, atraumatic ENT: PERRLA, EOMI, no pharyngeal exudate, mucous membranes moist Neuro: AAO x 3, speech clear and appropriate, strength intact bilaterally 5/5, sensation intact and equal all extremities and dermatomes, no pronator drift, no visual deficits, no ataxia, no aphasia or dysarthria- NIHSS 0 Chest: equal rise and fall of the chest, no accessory muscle use, no heaves or thrills, Clear to auscultation, on room air, Cardiac: Regular rate and rhythm, telemetry reviewed, skin warm dry, cap refill <3 seconds, peripheral pulses +2 no JVD, no murmur, no edema GI: NABS x 4 quadrants, soft, nontender to palpation, no rebound, guarding or tenderness : Spontaneously voiding, no pain, no CVA tenderness, Extremities: Normal inspection, no peripheral edema or erythema, calfs nontender to palpation Psych: Normal mood and affect Skin: no rash or erythema Results & Data Results & Data Vital Signs (Past 12 Hours) Vital Signs Temp Pulse Pulse Resp BP BP Pulse Ox 10/06/24 19:25 77 19 161/82 H 95 10/06/24 19:10 65 16 148/81 H 94 10/06/24 18:55 69 18 155/80 H 95 10/06/24 18:40 65 18 156/81 H 95 10/06/24 18:33 66 17 94 10/06/24 18:30 152/79 H 10/06/24 18:25 71 18 177/87 H 96 10/06/24 18:21 66 21 95 10/06/24 18:15 156/81 H 10/06/24 18:10 170/82 H 10/06/24 18:00 156/88 H 10/06/24 17:48 70 18 152/75 H 97 10/06/24 17:45 100 10/06/24 17:39 82 17 95 10/06/24 17:37 86 10/06/24 17:36 81 19 97 10/06/24 17:36 167/88 H 10/06/24 17:36 36.8 C 81 18 167/88 H 96 O2 Del Method 10/06/24 19:25 Room Air 10/06/24 19:10 Room Air 10/06/24 18:55 Room Air 10/06/24 18:40 Room Air 10/06/24 18:33 10/06/24 18:30 10/06/24 18:25 Room Air 10/06/24 18:21 10/06/24 18:15 10/06/24 18:10 10/06/24 18:00 10/06/24 17:48 Room Air 10/06/24 17:45 Room Air 10/06/24 17:39 10/06/24 17:37 10/06/24 17:36 10/06/24 17:36 10/06/24 17:36 Room Air Laboratory Results Abnormal lab results 10/06/24 10/06/24 10/06/24 Range/Units 17:37 17:41 19:30 RBC 4.27 L (4.70-6.10) M/uL Hgb 12.9 L (14.0-18.0) g/dl POC Hgb 12.6 L (14.0-18.0) g/dl Hct 38.4 L (42.0-52.0) % POC Hct 37 L (42-52) % POC Total CO2 18 L (24-31) mmol/L POC BUN 19 H (7-18) mg/dl BUN/Creatinine Ratio 23.2 H (10-20) Glucose 163 H (70-99(Fasting)) mg/dl POC Glucose (other) 153 H (70-99) mg/dl Ur Specific [place] 1.041 H (1.000-1.030) Urine Glucose (UA) Trace H (Negative) Diagnostic Findings Chest X-Ray 10/06/24 17:22 EXAM: Radiograph of the Chest 1 View INDICATION: Stroke TECHNIQUE: Frontal view of the chest. COMPARISON: No relevant prior studies available. FINDINGS: Lungs and pleural spaces: No consolidation or pulmonary edema. No pleural effusion or pneumothorax. Heart: Shape and configuration within normal limits allowing for technique. Mediastinum: Normal contour. Bones/joints: No fracture, erosion or dislocation. Soft tissues: No abnormality noted. No radiopaque foreign body noted. Vasculature: Mild ectatic aorta. Upper abdomen: No abnormality noted. IMPRESSION: No acute cardiopulmonary disease. ACT 112: N/A Electronically signed by Lizeth Franz 10-06-2024 6:[address] 10/06/24 17:22 EXAM: CT Head Without Intravenous Contrast INDICATION: Evaluate for stroke. Repetitive speech. TECHNIQUE: Axial computed tomography images of the head/brain without intravenous contrast. Sagittal and/or coronal reformats are provided. Sagittal and coronal reformatted images were created and reviewed. This CT exam was performed using one or more of the following dose reduction techniques: automated exposure control, adjustment of the mA and/or kV according to patient size, and/or use of iterative reconstruction technique. COMPARISON: No relevant prior studies available. FINDINGS: Limitations: None. Brain and extra-axial spaces: There is age appropriate cortical atrophy and chronic ischemic periventricular white matter hypodensity. No acute infarct, hemorrhage or mass noted. Bones/joints: No acute changes. Soft tissues: No significant abnormality noted. Vasculature: No acute abnormality noted. Sinuses: No layering fluid in the visualized portions of the paranasal sinuses. Mastoid air cells: No mastoid effusion. Orbits: No significant abnormality noted. IMPRESSION: Cerebral atrophy. No acute changes. ACT 112: N/A Electronically signed by Lizeth Franz 10-06-2024 5:44 PM Head CTA 10/06/24 17:22 EXAM: CT Angiography Head and Neck With Intravenous Contrast INDICATION: Evaluate for stroke. Repetitive speech. TECHNIQUE: [place]/head and neck CT angiography protocol performed with intravenous contrast. Sagittal and coronal reformatted images were created and reviewed. This CT exam was performed using one or more of the following dose reduction techniques: automated exposure control, adjustment of the mA and/or kV according to patient size, and/or use of iterative reconstruction technique. MIP reconstructed images were created and reviewed. CONTRAST: 115ml of Optiray 320 was administered intravenously. COMPARISON: None. FINDINGS: HEAD: Right anterior cerebral artery: No abnormality noted. No occlusion or significant stenosis. Anterior communicating artery is present. No aneurysm. Right middle cerebral artery: No abnormality noted. No occlusion or significant stenosis. No aneurysm. Right posterior cerebral artery: No abnormality noted. No occlusion or significant stenosis. No aneurysm. Right intracranial internal carotid artery: Mild calcific plaque noted. No significant stenosis. No dissection or occlusion. Right intracranial vertebral artery: No abnormality noted. No significant stenosis. No dissection or occlusion. Left anterior cerebral artery: No abnormality noted. No occlusion or significant stenosis. No aneurysm. Left middle cerebral artery: No abnormality noted. No occlusion or significant stenosis. No aneurysm. Left posterior cerebral artery: No abnormality noted. No occlusion or significant stenosis. No aneurysm. Left intracranial internal carotid artery: Mild calcific plaque noted. No significant stenosis. No dissection or occlusion. Left intracranial vertebral artery: No abnormality noted. No significant stenosis. No dissection or occlusion. Basilar artery: No abnormality noted. No occlusion or significant stenosis. No aneurysm. Other vasculature: Patent dural venous sinuses. No vascular malformation. NECK: Right common carotid artery: No abnormality noted. No significant stenosis. No dissection or occlusion. Right extracranial internal carotid artery: Minimal calcific plaque at the bulb. No significant stenosis. No dissection or occlusion. Right external carotid artery: No abnormality noted. No occlusion. Right extracranial vertebral artery: No abnormality noted. No significant stenosis. No dissection or occlusion. Left common carotid artery: No abnormality noted. No significant stenosis. No dissection or occlusion. Left extracranial internal carotid artery: Normal calcific plaque at the bulb. No significant stenosis. No dissection or occlusion. Left external carotid artery: No abnormality noted. No occlusion. Left extracranial vertebral artery: No abnormality noted. No significant stenosis. No dissection or occlusion. Brachiocephalic and subclavian arteries: There is mild calcific plaque at the origins of both subclavian arteries. No occlusion, dissection or aneurysm. Lung apices: No significant abnormality noted. HEAD and NECK: Bones/joints: No significant abnormality. Moderate degenerative changes at all levels. There is prominent midline osteophyte disc complex with canal stenosis at C5-C6 and C6-C7. Soft tissues: No abnormality noted. CAROTID STENOSIS REFERENCE USING NASCET CRITERIA: % ICA stenosis = (1 - narrowest ICA diameter/diameter of distal cervical ICA) x 100. Mild - <50% stenosis. Moderate - 50-69% stenosis. Severe - 70-94% stenosis. Near occlusion - 95-99% stenosis. Occluded - 100% stenosis. IMPRESSION: No significant angiographic abnormality in the head or neck. ACT 112: N/A Electronically signed by Lizeth Franz 10-06-2024 5:48 PM Neck CTA 10/06/24 17:22 EXAM: CT Angiography Head and Neck With Intravenous Contrast INDICATION: Evaluate for stroke. Repetitive speech. TECHNIQUE: [place]/head and neck CT angiography protocol performed with intravenous contrast. Sagittal and coronal reformatted images were created and reviewed. This CT exam was performed using one or more of the following dose reduction techniques: automated exposure control, adjustment of the mA and/or kV according to patient size, and/or use of iterative reconstruction technique. MIP reconstructed images were created and reviewed. CONTRAST: 115ml of Optiray 320 was administered intravenously. COMPARISON: None. FINDINGS: HEAD: Right anterior cerebral artery: No abnormality noted. No occlusion or significant stenosis. Anterior communicating artery is present. No aneurysm. Right middle cerebral artery: No abnormality noted. No occlusion or significant stenosis. No aneurysm. Right posterior cerebral artery: No abnormality noted. No occlusion or significant stenosis. No aneurysm. Right intracranial internal carotid artery: Mild calcific plaque noted. No significant stenosis. No dissection or occlusion. Right intracranial vertebral artery: No abnormality noted. No significant stenosis. No dissection or occlusion. Left anterior cerebral artery: No abnormality noted. No occlusion or significant stenosis. No aneurysm. Left middle cerebral artery: No abnormality noted. No occlusion or significant stenosis. No aneurysm. Left posterior cerebral artery: No abnormality noted. No occlusion or significant stenosis. No aneurysm. Left intracranial internal carotid artery: Mild calcific plaque noted. No significant stenosis. No dissection or occlusion. Left intracranial vertebral artery: No abnormality noted. No significant stenosis. No dissection or occlusion. Basilar artery: No abnormality noted. No occlusion or significant stenosis. No aneurysm. Other vasculature: Patent dural venous sinuses. No vascular malformation. NECK: Right common carotid artery: No abnormality noted. No significant stenosis. No dissection or occlusion. Right extracranial internal carotid artery: Minimal calcific plaque at the bulb. No significant stenosis. No dissection or occlusion. Right external carotid artery: No abnormality noted. No occlusion. Right extracranial vertebral artery: No abnormality noted. No significant stenosis. No dissection or occlusion. Left common carotid artery: No abnormality noted. No significant stenosis. No dissection or occlusion. Left extracranial internal carotid artery: Normal calcific plaque at the bulb. No significant stenosis. No dissection or occlusion. Left external carotid artery: No abnormality noted. No occlusion. Left extracranial vertebral artery: No abnormality noted. No significant stenosis. No dissection or occlusion. Brachiocephalic and subclavian arteries: There is mild calcific plaque at the origins of both subclavian arteries. No occlusion, dissection or aneurysm. Lung apices: No significant abnormality noted. HEAD and NECK: Bones/joints: No significant abnormality. Moderate degenerative changes at all levels. There is prominent midline osteophyte disc complex with canal stenosis at C5-C6 and C6-C7. Soft tissues: No abnormality noted. CAROTID STENOSIS REFERENCE USING NASCET CRITERIA: % ICA stenosis = (1 - narrowest ICA diameter/diameter of distal cervical ICA) x 100. Mild - <50% stenosis. Moderate - 50-69% stenosis. Severe - 70-94% stenosis. Near occlusion - 95-99% stenosis. Occluded - 100% stenosis. IMPRESSION: No significant angiographic abnormality in the head or neck. ACT 112: N/A Electronically signed by Lizeth Franz 10-06-2024 5:48 PM Medications Administered Home Medications aspirin 1 tab PO DIRECTED 10/06/24 [History Confirmed 10/06/24] atorvastatin 40 mg tablet 40 mg PO DAILY 10/06/24 [History Confirmed 10/06/24] lisinopril 20 mg tablet 20 mg PO DAILY 10/06/24 [History Confirmed 10/06/24] metformin 500 mg tablet,extended release 24 hr 1,000 mg PO BID 10/06/24 [History Confirmed 10/06/24] Active Medications Aspirin (No Aspirin Within 24hrs Of Thrombolytic-Stroke) 1 each PO UD BARBARA Stop: 10/07/24 18:14 Magnesium Sulfate/Dextrose (Magnesium Sulfate / D5w) 1 gm in 100 mls @ 100 mls/hr IV Q1H BARBARA Stop: 10/06/24 20:23 Last Admin: 10/06/24 19:33 Dose: 100 mls/hr ECG Additional Comments: Normal sinus rhythm Nonspecific ST abnormality Abnormal ECG No previous ECGs available Coding Level of Care Code 83845 IN/OBS CONSULT LVL 2,35M Diagnoses Stroke-like symptom R29.90 Thrombolytic medication administered within last 5 days Z78.9 Amnesia R41.3
[2024-10-06 19:56] LABS: Folate (Folic Acid),Ser orPlas 13.63 ng/ml (>5.38)
[2024-10-06 23:23] LABS: Lyme Screen Rflx Confirmation Positive (Negative)
[2024-10-07 00:05] LABS: Lyme Ab IgG 2nd Tier Confirm Positive (Negative); Lyme Ab IgM 2nd Tier Confirm Negative (Negative)
[2024-10-07 04:49] LABS: Basophils # (auto) 0.04 K/uL (0.00-0.20); Basophils % (auto) 0.6 %; Eosinophils # (auto) 0.15 K/uL (0.00-0.50); Eosinophils % (auto) 2.2 %; Hematocrit (blood only) 38.3 % (42.0-52.0); Hemoglobin 13.6 g/dl (14.0-18.0); Immature Granulocytes # (auto) 0.01 K/uL (0.01-0.20); Immature Granulocytes % (auto) 0.1 %; Lymphocytes # (auto) 2.21 K/uL (1.20-3.40); Lymphocytes % (auto) 32.4 %; Mean Corpuscular Hemoglobin 31.6 pg (25.0-34.0); Mean Corpuscular Hgb Conc 35.5 g/dL (32.0-36.0); Mean Corpuscular Volume 88.9 fL (80.0-100.0); Mean Platelet Volume 9.8 fL (9.4-12.4); Monocytes # (auto) 0.54 K/uL (0.11-0.59); Monocytes % (auto) 7.9 %; Neutrophils # (auto) 3.87 K/uL (1.40-6.50); Neutrophils % (auto) 56.8 %; Platelet Count 183 K/uL (130-400); RDW Coefficient of Variation 12.5 % (11.5-14.5); RDW Standard Deviation 41.1 fL (36.4-46.3); Red Blood Count 4.31 M/uL (4.70-6.10); White Blood Count 6.82 K/ul (4.8-10.8)
[2024-10-07 05:04] LABS: C Reactive Protein < 0.50 mg/dl (0-0.5); Chol HDL Ratio 3.1 (0-5); Cholesterol 133 mg/dl (0-200); HDL Cholesterol 43 mg/dl; LDL Cholesterol Calculated 71 mg/dl; Triglycerides 94 mg/dl (0-150); VLDL Cholesterol 19 mg/dl (0-30)
[2024-10-07 05:27] LABS: Polychromasia 1+
[2024-10-07 07:34] LABS: Estimated Average Glucose 166 mg/dl; Hemoglobin A1C 7.4 % (4.5-5.6)
--- NOTE | 2024-10-07 08:40 | Critical Care Progress Note ---
Date of Service October 07, 2024 Assessment & Plan (1) Thrombolytic medication administered within last 5 days: (2) Hypertension: (3) Diabetes: (4) Stroke-like symptom: (5) Acute alteration in mental status: (6) Anterograde amnesia: Plan Reason Critically Ill: 74 YOM presents with confusion/antegrade amnesia deemed thrombolytic candidate and received TNK. ICU for post thrombolytic monitoring and continue work up. Neuro - Stroke like symptoms, s/p thrombolytic administration, antegrade amnesia. CAM ICU: NEGATIVE --Strokelike symptoms - TNK administered at ~1824 on 10/06/2024 - q1 h neuro exams- any change obtain stat non con head CT - No antiplatelet medications until 24 hour post thrombolytic administration - DDX: Stroke vs. TIA vs complex migraine vs. seizure vs. other - BP goals allow permissive HTN <180/105- labetalol IV PRN Cardiac - Hx Of HTN, HLD= no acute needs -- History of coronary artery disease S/p stent approximately 8 years ago Only on aspirin --Dyslipidemia On statin at home Respiratory - No acute needs GI - No acute needs - advance diet as tolerated RENAL/LYTES - -- Monitor BUN/creatinine - No acute needs ENDO - -- Diabetes type 2 ICU hypoglycemia protocol HEME -No acute needs - follow for signs of bleeding ID - No concern for infectious etiology at this time --Prophylaxis VTE: IPC GI: None Lines: Peripheral Diet: Cardiac Plan: In/out: -743, urine output 1550 Patient is starting to remember things. He does not have any focal deficits He supposed to have repeat CT head and MRI of the brain today. If that is negative then okay to downgrade the patient to the floor Labs are pending from today Please note the above document was generated using voice recognition software. It may contain grammatical, syntax or spelling errors.Any formal questions or concerns about the content, text or information contained within the body of this dictation should be directly addressed to the provider for clarification. Admission and Anticipated Discharge Date Admission Date: October 06, 2024 Subjective Patient seen and examined at bedside. No acute distress, no adverse events overnight Patient's family was in the room at the time of examination Denied any blurry vision, no headache No focal weakness No difficulty swallowing No chest pain, no shortness of breath Review of Systems 2 Review of Systems: All systems reviewed & are unremarkable except as noted in Subjective Physical Exam 2 Physical Exam: Constitutional: No acute distress HEENT: EOMI, PERRLA Respiratory system: Good air entry bilaterally, no wheeze, no rhonchi, no crackles CVS: S1-S2 positive, no murmurs or gallops, bradycardia Abdomen: Soft, nontender, nondistended, positive bowel sounds x4 Extremities: +2 pulses bilaterally radialis/ dorsalis pedis, no cyanosis, no edema Neuro: Awake alert oriented x3, cranial nerves II to XII grossly intact Psych: Normal mood and affect G/U: No [place] Skin: no rashes, warm and dry Lymphatic: no cervical or axillary lymphadenopathy Results & Data Results & Data Vital Signs (Past 12 Hours) Vital Signs Temp Pulse Resp BP Pulse Ox O2 Del Method 10/07/24 06:25 36.8 C 53 L 16 155/75 H 98 Room Air 10/07/24 05:25 36.8 C 45 L 16 176/85 H 95 Room Air 10/07/24 04:25 36.8 C 46 L 16 156/86 H 96 Room Air 10/07/24 03:25 36.8 C 58 L 16 165/87 H 97 Room Air 10/07/24 02:25 36.8 C 45 L 14 124/68 96 Room Air 10/07/24 01:55 36.8 C 45 L 14 133/74 97 Room Air 10/07/24 01:25 36.8 C 45 L 14 152/72 H 97 Room Air 10/07/24 00:55 36.8 C 44 L 14 138/73 96 Room Air 10/07/24 00:25 36.8 C 47 L 16 138/77 97 Room Air 10/06/24 23:55 36.8 C 49 L 16 149/81 H 98 Room Air 10/06/24 23:25 36.7 C 60 16 157/87 H 98 Room Air 10/06/24 22:55 36.8 C 46 L 16 142/77 H 96 Room Air 10/06/24 22:25 36.8 C 51 L 16 144/71 H 96 Room Air 10/06/24 21:55 36.8 C 54 L 16 134/76 96 Room Air 10/06/24 21:25 36.8 C 53 L 16 152/75 H 98 Room Air 10/06/24 20:55 36.8 C 58 L 16 144/78 H 96 Room Air Laboratory Results 10/07/24 04:20 10/06/24 17:37 Coding Level of Care Code 88572 SUB INP/OBS CARE 2/35MIN Diagnoses Thrombolytic medication administered within last 5 days Z78.9 Hypertension I10 Diabetes E11.9 Stroke-like symptom R29.90 Acute alteration in mental status R41.82 Anterograde amnesia R41.1
--- NOTE | 2024-10-07 09:49 | Electrocardiogram Report ---
Test Reason : Blood Pressure : */* mmHG Vent. Rate : 78 BPM Atrial Rate : 78 BPM P-R Int : 158 ms QRS Dur : 98 ms QT Int : 362 ms P-R-T Axes : 66 2 -8 degrees QTcB Int : 412 ms Normal sinus rhythm Nonspecific ST abnormality Abnormal ECG No previous ECGs available Confirmed by Irma Dykes (Phu) on 10/07/2024 9:49:02 AM Referred By: REFERRED SELF Confirmed By: Irma Dykes
--- NOTE | 2024-10-07 13:20 | Neurology Consultation ---
Date of Consultation October 07, 2024 Assessment & Plan (1) Stroke-like symptom: Agree with continued admission in ICU setting following administration of IV thrombolytic per protocol Continue neurological assessments per thrombolytic protocol Obtain stat CT brain without contrast for any acute neurological decline Continue vital sign assessments per thrombolytic protocol Keep SBP <180mmHg / DBP<105 mmHg Plan for follow up brain imaging at or near 24 hours post thrombolytic administration Continue to hold full anticoagulation ASA, NSAIDs, antiplatelet medications until follow up CT brain without contrast at/near 24 hours post TNK infusion Continue stroke work up including MRI brain without contrast when stable Metabolic workup should include hgbA1c, fasting lipids Recommend obtain echocardiogram as part of complete stroke workup PT/OT/SLT to eval and treat SCDs as VTE prophylaxis If no indication for full anticoagulation per continued telemetry monitoring, pending echocardiogram or otherwise then recommend antiplatelet and statin therapy if no evidence of hemorrhage at time of follow up imaging. Recommend ZioPatch at DC if no evidence of arrhythmia during inpatient monitoring Recommend obtain EEG- can be done outpatient if unable to obtain during this admission Recommend continue to provide seizure precautions Utilize benzodiazepines emergently for any breakthrough clinical seizure like activity No Driving following episode of loss of awareness, communicated directly with primary/hospitalist team Telehealth Consultation Telehealth Information Telehealth Information: I performed this visit using a real-time telehealth connection between my location and the patients location ([facility]). After connecting through interactive tele-video, patient was identified by name and date of and/or wristband check.Patient (or authorized healthcare underwriting account representative) was informed that this was a telemedicine visit and it was being conducted confidentially over secure lines. My office door was closed and no one else was present in the room with me.Patient (or authorized healthcare underwriting account representative) provided consent to proceed with the visit, expressed an unders tanding of privacy and security of the telemedicine visit, and gave permission to have a hospital underwriting account representative in the room in order to assist with the visit and to conduct portions of the visit, as needed. I informed the patient (or authorized healthcare underwriting account representative) that I reviewed their record and presented the opportunity for them to ask any questions regarding the visit today. The patient agreed to participate. History of Present Illness Reason for Consultation: Stroke like symptoms Requesting Physician: Dr. Lowe Attending Physician: Rajat Lemons MD History of Present Illness 74yo male with hx of HTN, hyperlipidemia and DM presented with acute onset episode of confusion, blank staring. Reportedly awoke yesterday without deficit then was able to perform ADLs independently cooked dinner then while eating it got up to use the bathroom and reportedly returned confused and demonstrated blank staring. He arrived to ER underwent emergent stroke imaging and then received IV thrombolytic for which he has been monitored in ICU setting overnight per IV thrombolytic protocol. He was also reported to have loss of recall to events today and yesterday. I have performed televideo consultation. He is alert & oriented; able to answer all questions appropriately, name objects on televideo monitor, repeat phrases and perform complex/embedded commands without deficit. Neurological exam is non lateralizing/nonfocal in terms of motor strength and coordination. He reports using marijuana gummys recently but denies changes in prescription medication or ETOH usage. He states the gummy he consumed was purchased in [place] at a dispensary. He reports taking gummy every once in a while but not frequently. I have informed him of no driving in [place] due to loss of awareness and he and family at bedside verbalize understanding and are in agreement. Allergies Allergy/AdvReac Type Severity Reaction Status Date / Time No Known Allergies Allergy Unverified 10/06/24 19:22 Home Medications Medication Instructions Recorded Confirmed Type aspirin 1 tab PO DIRECTED 10/06/24 10/06/24 History atorvastatin 40 mg tablet 40 mg PO DAILY 10/06/24 10/06/24 History lisinopril 20 mg tablet 20 mg PO DAILY 10/06/24 10/06/24 History metformin 500 mg tablet,extended 1,000 mg PO BID 10/06/24 10/06/24 History release 24 hr Patient History Medical History (Updated 10/06/24 @ 20:21 by ALIN Abebe) Hypertension Diabetes Social History Smoking Status: Never smoker Hx Alcohol Use: No Hx Substance Use: No Preferred Language: Arabic Communication Ability: Effective Director Of Distribution Required: No Beliefs That Will Affect Care: None Feels Safe at Home: Yes Physical Exam Neurological Examination: Mental Status: Awake and alert. Oriented to person, place, and time. Fluency naming repetition and comprehension appear grossly intact. Affect remains appropriate. CN testing: I: Denies changes in ability to smell II:Reports no changes in visual acuity III/IV/: No evidence of gaze preference, hippus, nystagmus or roving eye movements V: Facial sensation is difficult to reliably assess VII: Facial movements appear without evidence of asymmetry VIII: Hearing appears grossly intact to loud voice bilaterally IX/X: Palate is unable to be reliably assessed via telemedicine XI: Shoulder shrug appears symmetric/ grossly intact bilaterally XII: Tongue protrudes midline without evidence of biting Motor exam: Strength appears grossly intact/symmetric in all extremities Sensory: Sensation is reportedly grossly intact throughout Coordination: No apparent evidence of dysmetria or dysdiadochokinesia Reflexes: Deferred Gait: Deferred Results & Data Vital Signs (Past 12 Hours) Vital Signs Temp Pulse Pulse Resp BP Pulse Ox O2 Del Method 10/07/24 10:25 47 L 15 146/79 H 96 Room Air 10/07/24 09:25 52 L 13 163/68 H 96 Room Air 10/07/24 08:25 52 L 14 144/77 H 96 Room Air 10/07/24 08:00 63 10/07/24 07:25 54 L 14 159/87 H 97 Room Air 10/07/24 06:25 36.8 C 53 L 16 155/75 H 98 Room Air 10/07/24 05:25 36.8 C 45 L 16 176/85 H 95 Room Air 10/07/24 04:25 36.8 C 46 L 16 156/86 H 96 Room Air 10/07/24 03:25 36.8 C 58 L 16 165/87 H 97 Room Air 10/07/24 02:25 36.8 C 45 L 14 124/68 96 Room Air 10/07/24 01:55 36.8 C 45 L 14 133/74 97 Room Air 10/07/24 01:25 36.8 C 45 L 14 152/72 H 97 Room Air Laboratory Results Abnormal lab results 10/06/24 10/06/24 10/06/24 Range/Units 17:37 17:39 17:41 RBC 4.27 L (4.70-6.10) M/uL Hgb 12.9 L (14.0-18.0) g/dl POC Hgb 12.6 L (14.0-18.0) g/dl Hct 38.4 L (42.0-52.0) % POC Hct 37 L (42-52) % POC Total CO2 18 L (24-31) mmol/L POC BUN 19 H (7-18) mg/dl BUN/Creatinine Ratio 23.2 H (10-20) Glucose 163 H (70-99(Fasting)) mg/dl POC Glucose (70-99) mg/dl POC Glucose (other) 153 H (70-99) mg/dl Hemoglobin A1c (4.5-5.6) % Ur Specific [place] (1.000-1.030) Urine Glucose (UA) (Negative) Lyme Disease Screen Positive H (Negative) Lyme Tier 2 IgG Confirm Positive H (Negative) 10/06/24 10/07/24 10/07/24 Range/Units 19:30 04:20 11:09 RBC 4.31 L (4.70-6.10) M/uL Hgb 13.6 L (14.0-18.0) g/dl POC Hgb (14.0-18.0) g/dl Hct 38.3 L (42.0-52.0) % POC Hct (42-52) % POC Total CO2 (24-31) mmol/L POC BUN (7-18) mg/dl BUN/Creatinine Ratio (10-20) Glucose (70-99(Fasting)) mg/dl POC Glucose 179 H (70-99) mg/dl POC Glucose (other) (70-99) mg/dl Hemoglobin A1c 7.4 H (4.5-5.6) % Ur Specific [place] 1.041 H (1.000-1.030) Urine Glucose (UA) Trace H (Negative) Lyme Disease Screen (Negative) Lyme Tier 2 IgG Confirm (Negative) Diagnostic Findings Chest X-Ray 10/06/24 17:22 EXAM: Radiograph of the Chest 1 View INDICATION: Stroke TECHNIQUE: Frontal view of the chest. COMPARISON: No relevant prior studies available. FINDINGS: Lungs and pleural spaces: No consolidation or pulmonary edema. No pleural effusion or pneumothorax. Heart: Shape and configuration within normal limits allowing for technique. Mediastinum: Normal contour. Bones/joints: No fracture, erosion or dislocation. Soft tissues: No abnormality noted. No radiopaque foreign body noted. Vasculature: Mild ectatic aorta. Upper abdomen: No abnormality noted. IMPRESSION: No acute cardiopulmonary disease. ACT 112: N/A Electronically signed by Lizeth Franz 10-06-2024 6:[address] 10/06/24 17:22 EXAM: CT Head Without Intravenous Contrast INDICATION: Evaluate for stroke. Repetitive speech. TECHNIQUE: Axial computed tomography images of the head/brain without intravenous contrast. Sagittal and/or coronal reformats are provided. Sagittal and coronal reformatted images were created and reviewed. This CT exam was performed using one or more of the following dose reduction techniques: automated exposure control, adjustment of the mA and/or kV according to patient size, and/or use of iterative reconstruction technique. COMPARISON: No relevant prior studies available. FINDINGS: Limitations: None. Brain and extra-axial spaces: There is age appropriate cortical atrophy and chronic ischemic periventricular white matter hypodensity. No acute infarct, hemorrhage or mass noted. Bones/joints: No acute changes. Soft tissues: No significant abnormality noted. Vasculature: No acute abnormality noted. Sinuses: No layering fluid in the visualized portions of the paranasal sinuses. Mastoid air cells: No mastoid effusion. Orbits: No significant abnormality noted. IMPRESSION: Cerebral atrophy. No acute changes. ACT 112: N/A Electronically signed by Lizeth Franz 10-06-2024 5:44 PM Head CTA 10/06/24 17:22 EXAM: CT Angiography Head and Neck With Intravenous Contrast INDICATION: Evaluate for stroke. Repetitive speech. TECHNIQUE: [place]/head and neck CT angiography protocol performed with intravenous contrast. Sagittal and coronal reformatted images were created and reviewed. This CT exam was performed using one or more of the following dose reduction techniques: automated exposure control, adjustment of the mA and/or kV according to patient size, and/or use of iterative reconstruction technique. MIP reconstructed images were created and reviewed. CONTRAST: 115ml of Optiray 320 was administered intravenously. COMPARISON: None. FINDINGS: HEAD: Right anterior cerebral artery: No abnormality noted. No occlusion or significant stenosis. Anterior communicating artery is present. No aneurysm. Right middle cerebral artery: No abnormality noted. No occlusion or significant stenosis. No aneurysm. Right posterior cerebral artery: No abnormality noted. No occlusion or significant stenosis. No aneurysm. Right intracranial internal carotid artery: Mild calcific plaque noted. No significant stenosis. No dissection or occlusion. Right intracranial vertebral artery: No abnormality noted. No significant stenosis. No dissection or occlusion. Left anterior cerebral artery: No abnormality noted. No occlusion or significant stenosis. No aneurysm. Left middle cerebral artery: No abnormality noted. No occlusion or significant stenosis. No aneurysm. Left posterior cerebral artery: No abnormality noted. No occlusion or significant stenosis. No aneurysm. Left intracranial internal carotid artery: Mild calcific plaque noted. No significant stenosis. No dissection or occlusion. Left intracranial vertebral artery: No abnormality noted. No significant stenosis. No dissection or occlusion. Basilar artery: No abnormality noted. No occlusion or significant stenosis. No aneurysm. Other vasculature: Patent dural venous sinuses. No vascular malformation. NECK: Right common carotid artery: No abnormality noted. No significant stenosis. No dissection or occlusion. Right extracranial internal carotid artery: Minimal calcific plaque at the bulb. No significant stenosis. No dissection or occlusion. Right external carotid artery: No abnormality noted. No occlusion. Right extracranial vertebral artery: No abnormality noted. No significant stenosis. No dissection or occlusion. Left common carotid artery: No abnormality noted. No significant stenosis. No dissection or occlusion. Left extracranial internal carotid artery: Normal calcific plaque at the bulb. No significant stenosis. No dissection or occlusion. Left external carotid artery: No abnormality noted. No occlusion. Left extracranial vertebral artery: No abnormality noted. No significant stenosis. No dissection or occlusion. Brachiocephalic and subclavian arteries: There is mild calcific plaque at the origins of both subclavian arteries. No occlusion, dissection or aneurysm. Lung apices: No significant abnormality noted. HEAD and NECK: Bones/joints: No significant abnormality. Moderate degenerative changes at all levels. There is prominent midline osteophyte disc complex with canal stenosis at C5-C6 and C6-C7. Soft tissues: No abnormality noted. CAROTID STENOSIS REFERENCE USING NASCET CRITERIA: % ICA stenosis = (1 - narrowest ICA diameter/diameter of distal cervical ICA) x 100. Mild - <50% stenosis. Moderate - 50-69% stenosis. Severe - 70-94% stenosis. Near occlusion - 95-99% stenosis. Occluded - 100% stenosis. IMPRESSION: No significant angiographic abnormality in the head or neck. ACT 112: N/A Electronically signed by Lizeth Franz 10-06-2024 5:48 PM Neck CTA 10/06/24 17:22 EXAM: CT Angiography Head and Neck With Intravenous Contrast INDICATION: Evaluate for stroke. Repetitive speech. TECHNIQUE: [place]/head and neck CT angiography protocol performed with intravenous contrast. Sagittal and coronal reformatted images were created and reviewed. This CT exam was performed using one or more of the following dose reduction techniques: automated exposure control, adjustment of the mA and/or kV according to patient size, and/or use of iterative reconstruction technique. MIP reconstructed images were created and reviewed. CONTRAST: 115ml of Optiray 320 was administered intravenously. COMPARISON: None. FINDINGS: HEAD: Right anterior cerebral artery: No abnormality noted. No occlusion or significant stenosis. Anterior communicating artery is present. No aneurysm. Right middle cerebral artery: No abnormality noted. No occlusion or significant stenosis. No aneurysm. Right posterior cerebral artery: No abnormality noted. No occlusion or significant stenosis. No aneurysm. Right intracranial internal carotid artery: Mild calcific plaque noted. No significant stenosis. No dissection or occlusion. Right intracranial vertebral artery: No abnormality noted. No significant stenosis. No dissection or occlusion. Left anterior cerebral artery: No abnormality noted. No occlusion or significant stenosis. No aneurysm. Left middle cerebral artery: No abnormality noted. No occlusion or significant stenosis. No aneurysm. Left posterior cerebral artery: No abnormality noted. No occlusion or significant stenosis. No aneurysm. Left intracranial internal carotid artery: Mild calcific plaque noted. No significant stenosis. No dissection or occlusion. Left intracranial vertebral artery: No abnormality noted. No significant stenosis. No dissection or occlusion. Basilar artery: No abnormality noted. No occlusion or significant stenosis. No aneurysm. Other vasculature: Patent dural venous sinuses. No vascular malformation. NECK: Right common carotid artery: No abnormality noted. No significant stenosis. No dissection or occlusion. Right extracranial internal carotid artery: Minimal calcific plaque at the bulb. No significant stenosis. No dissection or occlusion. Right external carotid artery: No abnormality noted. No occlusion. Right extracranial vertebral artery: No abnormality noted. No significant stenosis. No dissection or occlusion. Left common carotid artery: No abnormality noted. No significant stenosis. No dissection or occlusion. Left extracranial internal carotid artery: Normal calcific plaque at the bulb. No significant stenosis. No dissection or occlusion. Left external carotid artery: No abnormality noted. No occlusion. Left extracranial vertebral artery: No abnormality noted. No significant stenosis. No dissection or occlusion. Brachiocephalic and subclavian arteries: There is mild calcific plaque at the origins of both subclavian arteries. No occlusion, dissection or aneurysm. Lung apices: No significant abnormality noted. HEAD and NECK: Bones/joints: No significant abnormality. Moderate degenerative changes at all levels. There is prominent midline osteophyte disc complex with canal stenosis at C5-C6 and C6-C7. Soft tissues: No abnormality noted. CAROTID STENOSIS REFERENCE USING NASCET CRITERIA: % ICA stenosis = (1 - narrowest ICA diameter/diameter of distal cervical ICA) x 100. Mild - <50% stenosis. Moderate - 50-69% stenosis. Severe - 70-94% stenosis. Near occlusion - 95-99% stenosis. Occluded - 100% stenosis. IMPRESSION: No significant angiographic abnormality in the head or neck. ACT 112: N/A Electronically signed by Lizeth Franz 10-06-2024 5:48 PM Medications Administered Home Medications Medication Instructions Recorded Confirmed Last Taken aspirin 1 tab PO DIRECTED 10/06/24 10/06/24 Unknown atorvastatin 40 mg tablet 40 mg PO DAILY 10/06/24 10/06/24 Unknown lisinopril 20 mg tablet 20 mg PO DAILY 10/06/24 10/06/24 Unknown metformin 500 mg tablet,extended 1,000 mg PO BID 10/06/24 10/06/24 Unknown release 24 hr Active Medications Generic Name Dose Route Start Last Admin Trade Name Shahana PRN Reason Stop Dose Admin Atorvastatin Calcium 40 mg 10/07/24 09:00 10/07/24 08:06 Atorvastatin 40 Mg Tab PO 11/06/24 08:59 40 mg DAILY BARBARA Administration Thiamine HCl 500 mg/ Sodium 55 mls @ 210 mls/hr 10/06/24 20:30 10/07/24 12:46 Chloride IV 10/09/24 20:29 210 mls/hr Q8H BARBARA Administration Lisinopril 20 mg 10/07/24 09:00 10/07/24 08:06 Lisinopril 20 Mg Tab PO 11/06/24 08:59 20 mg DAILY BARBARA Administration Miscellaneous 1 each 10/06/24 21:00 10/07/24 12:48 Icu Protocol For Hyperglycemia N/A 10/08/24 20:59 Not Given ACHS BARBARA
--- NOTE | 2024-10-07 15:46 | Hospitalist Progress Note ---
Date of Service October 07, 2024 Assessment & Plan (1) Stroke-like symptom: (2) Anterograde amnesia: (3) Hypertension: (4) Diabetes: Plan Mr. Francis is a 74 year old gentleman with past medical history remarkable for HTN, DMTII, HLD admitted for stroke r/o, s/p TNK at 1825 on 10/06/2024. Patient to be admitted to ICU for post TNK monitoring. Patient's neurologic deficit marked by prominent anterograde amnesia. Labs noncontributory thus far, no reported etoh history. TSH, folate, b12 pending. #Anterograde amnesia, stroke #Stroke like symptoms -CT head, CTA without acute stroke, dissection, vascular stenosis -appears much better this morning -personally reviewed MR head, posterior left temporal lobe white matter changes vs. infarct noted -consideration for TIA vs. drug induced given took "gummies" vs. less likely Todds paralsysis, hemiplegic migraine Plan: -f/u MR head results -post 24 hour TPA protocol, monitor in ICU -neurology consult, appreciate recs -check tox screen -PT/OT/speech, stroke workup #HTN -on lisinopril #HLD -continue statin #DMII -on metformin at home -hyperglycemic protocol per ICU I spent a total of 45 minutes in direct patient care, including [id number] time with the patient and/or family, reviewing medical records, ordering and reviewing diagnostic tests, and coordinating care with other healthcare providers. This time includes: history taking, physical examination, medical decision making, counseling, ECG interpretation, imaging interpretation, lab interpretation, orders, and education, excluding time spent in the performance of separately billed services. Admission and Anticipated Discharge Date Admission Date: October 06, 2024 Subjective Patient seen and examiend at bedside. Patient doing well today, talking and understanding relatively well, much better after TNK. Review of Systems Review of Systems: CONSTITUTIONAL: Patient denies fevers, chills, sweats and weight changes. EYES: Patient denies any visual symptoms. EARS, NOSE, AND THROAT: No difficulties with hearing. No symptoms of rhinitis or sore throat. CARDIOVASCULAR: Patient denies chest pains, palpitations, orthopnea and paroxysmal nocturnal dyspnea. RESPIRATORY: No dyspnea on exertion, no wheezing or cough. GI: No nausea, vomiting, diarrhea, constipation, abdominal pain, hematochezia or melena. : No urinary hesitancy or dribbling. No nocturia or urinary frequency. No abnormal urethral discharge. MUSCULOSKELETAL: No myalgias or arthralgias. NEUROLOGIC: No chronic headaches, no seizures. Patient denies numbness, tingling or weakness. PSYCHIATRIC: Patient denies problems with mood disturbance. No problems with anxiety. ENDOCRINE: No excessive urination or excessive thirst. DERMATOLOGIC: Patient denies any rashes or skin changes. Physical Exam Physical Exam: Gen: A&O 3 NAD HEENT: NCAT, EOMI, not icteric. External ears normal. No rhinorrhea. Moist mucous membranes. Neck: Supple, full range of motion, no observable masses, No meningeal sign. Lungs: No Respiratory distress. CV: RRR, no edema. Abdomen: Soft, nondistended, No rebound tenderness. MSK: No joint swelling, no redness. Skin: No rashes, petechiae, lesions. Normal color per patient. Neuro: trace expressive aphasis, vastly improved compared to documented prior Psych: Appropriate for situation. Results & Data Results & Data Vital Signs (Past 12 Hours) Vital Signs Temp Pulse Pulse Resp BP Pulse Ox O2 Del Method 10/07/24 12:25 51 L 16 153/76 H 95 Room Air 10/07/24 11:25 48 L 15 171/77 H 97 Room Air 10/07/24 10:25 47 L 15 146/79 H 96 Room Air 10/07/24 09:25 52 L 13 163/68 H 96 Room Air 10/07/24 08:25 52 L 14 144/77 H 96 Room Air 10/07/24 08:00 63 10/07/24 07:25 54 L 14 159/87 H 97 Room Air 10/07/24 06:25 36.8 C 53 L 16 155/75 H 98 Room Air 10/07/24 05:25 36.8 C 45 L 16 176/85 H 95 Room Air 10/07/24 04:25 36.8 C 46 L 16 156/86 H 96 Room Air Laboratory Results -personally reviewed, no leukocytosis, positive IgG but negative IgM lyme titer Medications Administered Atorvastatin Calcium (Atorvastatin 40 Mg Tab) 40 mg PO DAILY BARBARA Stop: 11/06/24 08:59 Last Admin: 10/07/24 08:06 Dose: 40 mg Documented By: JOSÉ Thiamine HCl 500 mg/ Sodium (Chloride) 55 mls @ 210 mls/hr IV Q8H BARBARA Stop: 10/09/24 20:29 Last Infusion: 10/07/24 13:44 Dose: Infused Documented By: Admin: 10/07/24 12:46 Dose: 210 mls/hr Documented By: Infusion: 10/07/24 03:56 Dose: Infused Documented By: Admin: 10/07/24 03:36 Dose: 210 mls/hr Documented By: Admin: 10/06/24 20:16 Dose: Not Given Documented By: MARITZA Lisinopril (Lisinopril 20 Mg Tab) 20 mg PO DAILY BARBARA Stop: 11/06/24 08:59 Last Admin: 10/07/24 08:06 Dose: 20 mg Documented By: JOSÉ Miscellaneous (Icu Protocol For Hyperglycemia) 1 each N/A ACHS BARBARA Stop: 10/08/24 20:59 Last Admin: 10/07/24 12:48 Dose: Not Given Documented By: Admin: 10/07/24 08:07 Dose: 1 each Documented By: Admin: 10/06/24 20:17 Dose: Not Given Documented By: MARITZA
[2024-10-07 16:18] LABS: Amphetamines+Metham, Urine Neg (Neg); Barbiturates, Urine Neg (Neg); Benzodiazepine, Urine Neg (Neg); Cocaine, Urine Neg (Neg); Fentanyl, Urine Neg (Neg); MDMA (Ecstacy), Urine Neg (Neg); Marijuana, Urine Pos (Neg); Methadone, Urine Neg (Neg); Opiate, Urine Neg (Neg); Phencyclidine, Urine Neg (Neg)
--- NOTE | 2024-10-07 16:50 | Magnetic Resonance Report ---
EXAM: MR brain wo con CLINICAL HISTORY: stroke TECHNIQUE: MRI of the brain was performed without contrast, with multiplanar sequences obtained. COMPARISON: Comparison is made with CT brain dated 10/06/2024. FINDINGS: Brain Parenchyma: Bilateral deep white matter and periventricular foci of high T2 and FLAIR signal intensity are seen with no mass effect on the surrounding structures, denoting chronic white matter ischemic changes (FAZEKAS 2). No evidence of acute infarction or hemorrhage. Normal hendrickson-white matter differentiation. No mass lesions or focal cortical abnormalities identified. Ventricles and Sulci: Normal size and configuration of the lateral ventricles, third ventricle, and fourth ventricle. No evidence of hydrocephalus or ventriculomegaly. Sylvian fissures, sulci, and cisterns are within normal limits. Posterior Fossa: Cerebellum and brainstem appear normal without evidence of mass lesions or signal abnormalities. Cranial Nerves: Normal course and appearance of cranial nerves identified. Vessels: No evidence of vascular malformations or aneurysms. Intracranial arteries and veins appear normal without evidence of stenosis or occlusion. Orbits and Skull Base: Orbits and skull base structures are normal without evidence of abnormalities. IMPRESSION: 1. Chronic microvascular ischemic changes. 2. No acute intracranial abnormality identified. Stable. Electronically signed by Johnathan Gonzales 10-07-2024 4:49 PM
--- NOTE | 2024-10-07 20:44 | CT Scan Report ---
CT head without contrast History: Status post thrombolytic administration Comparison: Same-day MRI Technique: Using multidetector thin collimation helical acquisition technique, axial, coronal and sagittal CT images from the skull base to the vertex were obtained without intravenous contrast. Dose reduction techniques were achieved by using automatic exposure control and/or adjustment of mA and/or kV according to patient size and/or use of iterative reconstruction technique. Findings: No intracranial hemorrhage, mass-effect, or midline shift. The ventricles are proportionate to the cerebral sulci. The hendrickson to white matter differentiation of the cerebral hemispheres is preserved. The basal cisterns are patent. Scattered low attenuating areas throughout the white matter compatible with chronic microvascular ischemic change again seen. The visualized paranasal sinuses are clear. Mastoid air cells are clear. Impression: No acute intracranial pathology. No hemorrhage. Electronically signed by Sotero Mancilla 10-07-2024 8:44 PM
[2024-10-08 07:15] LABS: Basophils # (auto) 0.04 K/uL (0.00-0.20); Basophils % (auto) 0.5 %; Eosinophils % (auto) 2.7 %; Hematocrit (blood only) 40.1 % (42.0-52.0); Hemoglobin 13.7 g/dl (14.0-18.0); Immature Granulocytes # (auto) 0.03 K/uL (0.01-0.20); Immature Granulocytes % (auto) 0.4 %; Lymphocytes # (auto) 1.64 K/uL (1.20-3.40); Lymphocytes % (auto) 22.3 %; Mean Corpuscular Hemoglobin 30.1 pg (25.0-34.0); Mean Corpuscular Hgb Conc 34.2 g/dL (32.0-36.0); Mean Corpuscular Volume 88.1 fL (80.0-100.0); Mean Platelet Volume 9.8 fL (9.4-12.4); Monocytes # (auto) 0.62 K/uL (0.11-0.59); Monocytes % (auto) 8.4 %; Neutrophils # (auto) 4.82 K/uL (1.40-6.50); Neutrophils % (auto) 65.7 %; Platelet Count 162 K/uL (130-400); RDW Coefficient of Variation 12.6 % (11.5-14.5); RDW Standard Deviation 40.9 fL (36.4-46.3); Red Blood Count 4.55 M/uL (4.70-6.10); White Blood Count 7.35 K/ul (4.8-10.8)
--- NOTE | 2024-10-08 13:23 | Discharge Summary ---
Discharge Summary Date of Service October 08, 2024 Principal Dx & Hospital Course #1 = Principal Diagnosis (1) Stroke-like symptom: (2) Anterograde amnesia: (3) Hypertension: (4) Diabetes: Plan Mr. Francis is a 74 year old gentleman with past medical history remarkable for HTN, DMTII, HLD admitted for stroke r/o, s/p TNK at 1825 on 10/06/2024. Patient to be admitted to ICU for post TNK monitoring. Patient's neurologic deficit marked by prominent anterograde amnesia. Labs noncontributory thus far, no reported etoh history. TSH, folate, b12 pending. #Anterograde amnesia, stroke #Stroke like symptoms -CT head, CTA without acute stroke, dissection, vascular stenosis -appears much better this morning -personally reviewed MR head, posterior left temporal lobe white matter changes vs. infarct noted -consideration for TIA vs. drug induced vs. less likely Todds paralsysis, hemiplegic migraine -MR head without infarct Plan: -discharge home, f/u with neurology outpatient #HTN -on lisinopril #HLD -continue statin #DMII -on metformin at home Notes For Next Care Provider Mr. Francis is a 74 year old gentleman with past medical history remarkable for HTN, DMTII, HLD admitted for stroke r/o, s/p TNK at 1825 on 10/06/2024. In the ICU, patient monitored and without incidence. MR head without infarct. TIA vs. resolution with TNK vs complex migraine vs. drug induced. On 10/08/2024 patient medically stable for discharge home. To do: [ ] f/u with neurology [ ] license will be suspended 2/2 LOC Medication Changes From Visit -see below Admission HPI Per Admitting Provider Mr. Franics is a 74 year old gentleman with past medical history remarkable for HTN, DMTII, HLD presented to [facility] ED due to amnesia. Patient was a code stroke prior to arrival. History mostly provided by and daughter at bedside. Patient was last well known around 1600 today. He eating dinner with family when he left to go to the bathroom. Upon returning, the states the patient exclaimed "whose plate is this?" The states from there on out he kept repeating the same things and was unable to recall any of the events of the day or the day prior. There was no presyncopal episode, no chest pain, no clear acute concern preceeding this event. It is reported perhaps an episode of diarrhea, however, there were no ongoing concerns of this previously. Patient continues to demonstrate continue anterograde amnesia--unable to remember why he is in the hospital, recall physicians who have examined him multiple times may be. He denies any headache, weakness, localizing symptoms. He is speaking clearly and moving all limbs normal. states patient does not drink alcohol, smoke tobacco, nor any other illicit substances. Patient is an avid bia, no ambulatory dysfunction at baseline. No reported seizure like activity, flaccid movements, weakness of extremities noted. Decision was made to administer TNK at 1825 on 10/06/2024 In the ED, vitals were notable for BP of 140s-170s HR of 60s and O2 sat of mid- high 90s on room air Imaging revealed CTA without any significant stenosis or dissection, CT head revealed cerebral atrophy but no infarct ED interventions: TNK, magnesium, thiamine Consultants: Telestroke Patient to be admitted to ICU for further evaluation and management of post TNK administration, stroke r/o, prominent anterograde amnesia Discharge Exam Gen: A&O 3 NAD HEENT: NCAT, EOMI, not icteric. External ears normal. No rhinorrhea. Moist mucous membranes. Neck: Supple, full range of motion, no observable masses, No meningeal sign. Lungs: No Respiratory distress. CV: RRR, no edema. Abdomen: Soft, nondistended, No rebound tenderness. MSK: No joint swelling, no redness. Skin: No rashes, petechiae, lesions. Normal color per patient. Neuro: no residual deficits Psych: Appropriate for situation. Updated Medication List Medication Instructions Recorded Confirmed Type aspirin 1 tab PO DIRECTED 10/06/24 10/06/24 History atorvastatin 40 mg tablet 40 mg PO DAILY 10/06/24 10/06/24 History lisinopril 20 mg tablet 20 mg PO DAILY 10/06/24 10/06/24 History metformin 500 mg tablet,extended 1,000 mg PO BID 10/06/24 10/06/24 History release 24 hr Hospital Stay Data Consultations 10/06/24 18:48 Consult Neurology Stat 10/06/24 20:06 Consult Corrections Lieutenant Routine Diagnostic Imagining Performed 10/06/24 17:22 CT angio head w con Stat CT angio neck with con Stat CT head/brain wo con Stat 10/07/24 07:11 MR brain wo con Routine 10/07/24 18:50 CT head/brain wo con Stat Pending Results Patient Have Any Pending Studies at Discharge: No Discharge Instructions Given to Patient (Per Discharging Provider) 1. Please follow up with PCP, neurology. 2. No driving at this time. Total Time Total Time Spent Total Time Spent (In Minutes): I spent a total of 35 minutes in direct patient care, including [id number] time with the patient and/or family, reviewing medical records, ordering and reviewing diagnostic tests, and coordinating care with other healthcare providers. This time includes: history taking, physical examination, medical decision making, counseling, ECG interpretation, imaging interpretation, lab interpretation, orders, and education, excluding time spent in the performance of separately billed services.
[2024-10-13 00:17] LABS: Marijuana Quant, GCMS Urine 35 ng/mL (<5)
== END 2024-10-08 13:48 | disposition home or self-care (01) ==
LOC: ED 17:24 → 1E 18:40 → SUATTDRO 18:40 → 1E 19:50 → 2S 10-07 21:57